=== PATIENT | male | born 1940 | race Caucasian/White ===

== ENCOUNTER → 2017-07-29 11:50 | Outpatient (CLI) | payer OTHER, SELFPAY ==
[2017-07-29 12:55] LABS: Add Manual Diff / Slide Review NO; Basophils Percent Auto 0.6 % (0-2); Eosinophils Percent Auto 3.7 % (2-4); Hematocrit 42.1 % (41-53); Hemoglobin 14.2 g/dL (13.5-17.5); Lymphocytes Percent Auto 19.5 % (25-40); Mean Corpuscular HGB Conc 33.8 % (30-36); Mean Corpuscular Hemoglobin 30.7 PG (26-34); Mean Corpuscular Volume 90.8 fL (80-100); Monocytes Percent Auto 8.6 % (3-14); Neutrophils Absolute Auto 4700 /uL (3000-5900); Neutrophils Percent Auto 67.6 % (50-75); Platelet Count 177 X10^3/uL (150-400); Red Blood Cell Count 4.63 X10^6/uL (4.5-5.9); Red Cell Distribution Width 13.4 % (11.6-14.8)
[2017-07-29 13:27] LABS: HEMOLYSIS < 15 (0-50); Potassium 4.8 mmol/L (3.4-5.1); Sodium 143 mmol/L (137-145)
== END ==
PROVIDERS: PCP Family Medicine; Visit Provider Orthopaedic Surgery
DX: M16.12 Unilateral primary osteoarthritis, left hip (principal); Z01.818 Encounter for other preprocedural examination; Z01.812 Encounter for preprocedural laboratory examination
CPT/HCPCS: 36415; 80051; 85025; 93005

== ENCOUNTER 2017-08-08 09:55 | Inpatient (IN) | payer OTHER, SELFPAY ==
[2017-08-04 12:45] VITALS: BMI 29.7
[2017-08-08] VITALS (12 sets, daily range): BP systolic 114–169; BP diastolic 48–91; PULSE 52–88; RESP 12–20; TEMP 35.7–36.6; O2SAT 93–97; BMI 28.2
--- NOTE | 2017-08-08 | DI.RAD.S_ITS ---
PROCEDURE: XR HIP LT 1V INDICATIONS: 77 year-old male with left hip joint replacement. TECHNIQUE: Single view of the lower pelvis acquired. COMPARISON: [facility] LYNDSEY Galindo, XR PELVIS WITH LATERAL HIP LEFT, 04/26/2017, 14:58. FINDINGS: Bones: Patient is status post noncemented left hip arthroplasty, with hardware components in expected positions. The hip joint appears congruent. Remote right hip arthroplasty is again noted. The visualized bony structures appear intact. Soft tissues: Overlying postoperative changes are noted, including skin elsie. No suspicious soft tissue densities. Patient is status post remote left pelvic embolization procedure. IMPRESSION: Status post left hip arthroplasty, with hardware components in expected positions. Dictated by: Victor M Olvera M.D. on 08/08/2017 at 17:05 Approved by: Victor M Olvera M.D. on 08/08/2017 at 17:06
[2017-08-08] MEDS: LACTATED RINGERS 1,000 ML 42 ML IV (13:23)
--- NOTE | 2017-08-08 14:34 | PM.PREOP ---
Pre-operative Note Interval Note Pre-op Check: History & Physical Reviewed by Physician and Changes
[2017-08-08] MEDS: CEFAZOLIN 1 GM/50 ML FROZ.PIGGY IV (15:06)
--- NOTE | 2017-08-08 15:42 | SUR.OPER ---
Lateral on padded OR bed. Gel axillary roll. Arms secured on padded armboard with pillow supporting top arm. Padded hip positioner braces x4 - anterior and posterior chest and pelvis. Additional gel pad used anterior pelvis. Gel pad under bottom leg from knee to foot and secured with tape over sheet.
[2017-08-08] MEDS: BUPIVACAINE 0.25% W/ EPI 50 ML VIAL 30 ML INJ (16:17)
[2017-08-08] MEDS: BUPIVACAINE LIPOSOME 266 MG/20 ML VIAL INJ (16:17)
--- NOTE | 2017-08-08 16:51 | PM.OP.1 ---
Operative Date/Time/Diagnoses - Date of procedure: 08/08/17 Time of procedure: 16:51 Pre-op diagnosis: Left hip degenerative joint disease Post-op diagnosis: same Procedure & Clinicians Procedure: Left total hip arthroplasty (CPT code 26704 with practice assistant) Same procedure as scheduled: Yes Indications: Patient is an 77-year-old male with severe left hip DJD. The patient has pain with activities and at rest, limited ambulation and activity tolerance, difficulties with ADLs, and failure of conservative treatment. We have discussed the nature of condition, treatment options, risks and benefits, and patient elects to proceed with total hip arthroplasty and gives informed consent. Surgeon: Harsh Henry Fishing Worker: Amira Casillas Anesthesia Type: General and Spinal Operative Notes Closure Type: primary Implants & Drains: Acetabulum: Khan [employer]hew R3 acetabular component size 56 mm Femoral component: Khan [employer]hew Synergy stem size 16 with high offset Femoral head: 36 mm + 0 cobalt chrome Estimated Blood Loss (mL): 100 Blood products transfused: none Procedure in detail: After satisfaction induction of anesthetic, and administration of IV antibiotics, the patient was positioned in the lateral decubitus position with all bony prominences well padded and pelvic position secured using a hip clinical research monitor positioning device. Left hip and lower extremity prepped and draped in the usual sterile fashion, 1st dose of intravenous tranexamic acid was administered, then a longitudinal incision was created centered over the greater trochanter and carried sharply through the skin and subcutaneous tissues down to the fascia elisha which was divided longitudinally and retracted with a Charnley retractor. External rotators visualize, cut, tagged, and retracted posteriorly, then the capsule was cut in a T-type fashion with the corners tagged and retracted. Hip was dislocated and femoral neck cut made according to preoperative templating. Acetabular retractors then placed, and the acetabular labrum and osteophytes were excised. The acetabulum was then sequentially reamed to 55 mm with an excellent circumferential ream and fit with the trial. The trial component was removed and a permanent size 56 Khan [employer] Nephew R3 acetabular component was selected, positioned, and impacted with satisfactory position and fixation achieved. Permanent liner was then inserted with the elevated lip directed posteriorly. Soft tissue then removed off the lateral femoral neck in the lateral neck was entered using a box osteotome. T-handled reamers placed down the canal followed by sequential broaching to 16 with the final broach left in place for trial reduction which demonstrated good leg length, range of motion, and stability characteristics with a 36 mm +0 trial ball. Because we had moderately medialized the acetabular component and rotational stability was good but not excellent another trial reduction was performed with a high offset neck trial, and this yielded excellent leg length, range of motion, and stability characteristics. The trial and broach were removed, and a permanent size 16 high offset Khan [employer] Nephew Synergy stem was selected and inserted with excellent position and fixation achieved. Another trial reduction yielded the above characteristics so the trial ball was exchanged for a permanent 36 mm +0 cobalt chromium ball. The hip was irrigated and reduced and excellent leg length range of motion and stability characteristics were achieved and maintained. Periarticular tissues were infiltrated with Exparel. The hip was copiously irrigated, and the capsule repaired with #2 Ethibond, and the piriformis was repaired back to the greater trochanter with the same. Fascia elisha closed with interrupted #1 Ethibond sutures, and the subcutaneous tissues were closed in 2 layers of 0 Vicryl and 2 0 Vicryl. Skin was closed with elsie and sterile dressings applied. Second dose of tranexamic acid was administered intravenously, and the anesthetic was terminated. Complications: none Condition: stable Disposition: PACU Plan for aftercare: Patient will be admitted to the acute care stoner, and anticipate discharge on postop day 1-2 with follow-up in office in 10-14 days. Outpatient physical therapy will be arranged and patient will continue to observe posterior hip precautions. Patient will continue use of postoperative Lovenox for 10 days postop.
--- NOTE | 2017-08-08 16:56 | P.OP_ITS ---
Operative Date/Time/Diagnoses - Date of procedure: 08/08/17 Time of procedure: 16:51 Pre-op diagnosis: Left hip degenerative joint disease Post-op diagnosis: same Procedure & Clinicians Procedure: Left total hip arthroplasty (CPT code 89627 with broker assistant) Same procedure as scheduled: Yes Indications: Patient is an 77-year-old male with severe left hip DJD. The patient has pain with activities and at rest, limited ambulation and activity tolerance, difficulties with ADLs, and failure of conservative treatment. We have discussed the nature of condition, treatment options, risks and benefits, and patient elects to proceed with total hip arthroplasty and gives informed consent. Surgeon: Harsh Henry [employer] Specialist: Amira Casillas Anesthesia Type: General and Spinal Operative Notes Closure Type: primary Implants & Drains: Acetabulum: Khan [employer]hew R3 acetabular component size 56 mm Femoral component: Khan [employer]hew Synergy stem size 16 with high offset Femoral head: 36 mm + 0 cobalt chrome Estimated Blood Loss (mL): 100 Blood products transfused: none Procedure in detail: After satisfaction induction of anesthetic, and administration of IV antibiotics, the patient was positioned in the lateral decubitus position with all bony prominences well padded and pelvic position secured using a hip balance wheel screw hole tapper positioning device. Left hip and lower extremity prepped and draped in the usual sterile fashion, 1st dose of intravenous tranexamic acid was administered, then a longitudinal incision was created centered over the greater trochanter and carried sharply through the skin and subcutaneous tissues down to the fascia elisha which was divided longitudinally and retracted with a Charnley retractor. External rotators visualize, cut, tagged, and retracted posteriorly, then the capsule was cut in a T-type fashion with the corners tagged and retracted. Hip was dislocated and femoral neck cut made according to preoperative templating. Acetabular retractors then placed, and the acetabular labrum and osteophytes were excised. The acetabulum was then sequentially reamed to 55 mm with an excellent circumferential ream and fit with the trial. The trial component was removed and a permanent size 56 Khan [employer] Nephew R3 acetabular component was selected, positioned, and impacted with satisfactory position and fixation achieved. Permanent liner was then inserted with the elevated lip directed posteriorly. Soft tissue then removed off the lateral femoral neck in the lateral neck was entered using a box osteotome. T- handled reamers placed down the canal followed by sequential broaching to 16 with the final broach left in place for trial reduction which demonstrated good leg length, range of motion, and stability characteristics with a 36 mm +0 trial ball. Because we had moderately medialized the acetabular component and rotational stability was good but not excellent another trial reduction was performed with a high offset neck trial, and this yielded excellent leg length, range of motion, and stability characteristics. The trial and broach were removed, and a permanent size 16 high offset Khan [employer] Nephew Synergy stem was selected and inserted with excellent position and fixation achieved. Another trial reduction yielded the above characteristics so the trial ball was exchanged for a permanent 36 mm +0 cobalt chromium ball. The hip was irrigated and reduced and excellent leg length range of motion and stability characteristics were achieved and maintained. Periarticular tissues were infiltrated with Exparel. The hip was copiously irrigated, and the capsule repaired with #2 Ethibond, and the piriformis was repaired back to the greater trochanter with the same. Fascia elisha closed with interrupted #1 Ethibond sutures, and the subcutaneous tissues were closed in 2 layers of 0 Vicryl and 2 0 Vicryl. Skin was closed with elsie and sterile dressings applied. Second dose of tranexamic acid was administered intravenously, and the anesthetic was terminated. Complications: none Condition: stable Disposition: PACU Plan for aftercare: Patient will be admitted to the acute care stoner, and anticipate discharge on postop day 1-2 with follow-up in office in 10-14 days. Outpatient physical therapy will be arranged and patient will continue to observe posterior hip precautions. Patient will continue use of postoperative Lovenox for 10 days postop.
[2017-08-08] MEDS: ONDANSETRON 4 MG/2 ML INJ IV (17:23)
--- NOTE | 2017-08-08 17:37 | PC.NURSE ---
Addendum entered by Janeth Seaman R.N. 08/08/17 21:43: Medicated for nausea vomiting with Reglan x 1, with adequate relief, taking sips of water. IVF infusing. Continue on 2L O2 via NC. Calls staff appropriately for needs. Original Note: Admit note: Patient admitted to AC from Holding with 2 RNs, awake and alert x 3. No c/o pain, reports mild numbness to Left foot/ left foot warm, pink, movable, 2+ pulses. Bilateral calf SCDs in place, Dressing to lateral left upper hip/thigh CDI with ice pack in place. C/O nausea, medicated with Zofran IV as ordered with adequate relief. VSS. Pleasant, calm, and cooperative. Bed alarm active, call light within reach, educated regarding room, environment and hip/fall precautions.
--- NOTE | 2017-08-08 17:50 | SUR.PHASEI ---
stable pacu report called, pt left in stable condiiton.
[2017-08-08] MEDS: LACTATED RINGERS 1,000 ML 100 ML IV (18:46)
[2017-08-08] MEDS: METOCLOPRAMIDE 10 MG/2 ML INJ IV (20:37)
[2017-08-08] MEDS: CEFAZOLIN 2 GM/100 ML FROZ.PIGGY IV (22:36)
[2017-08-09] VITALS (9 sets, daily range): BP systolic 135–146; BP diastolic 58–78; PULSE 60–75; RESP 16–19; TEMP 36.4–37.3; O2SAT 91–98
[2017-08-09] MEDS: ONDANSETRON 4 MG/2 ML INJ IV (02:56)
--- NOTE | 2017-08-09 03:26 | PC.NURSE ---
Addendum entered by Ana Maria Redd R.N. 08/09/17 06:36: Pt voided 225. radha urine. Pt stated it took me 30 minutes to get that out. post void, bladder scan showed 222mL. Pt stated he did not feel full, nor bloated, nor like he had to go. will continue to monitor. Pt did complain of some itchiness, lotion applied. snack provided, gingerale provided. Pt denied nausea/vomiting. tylenol given. stated it was helping. Original Note: Assumed care of pt from outgoing shift at 2300 6-4. Pt asleep, easily aroused. no void yet, will encourage to void. complaint with nursing assessments. PT uses call light. has continuous pox on. 2l oxygen per nc. discussed IS and pt stated he was tired so would use it in the AM. denies pain. pt states he is comfortable.Pt belongings and call light within reach. bed in lowest, locked position. bed alarm on for pt safety. will continue to monitor pt for safety. 0200 update- pt voided 135. will encourage again in a bit. bladder scan 370ml. back washed and lotion applied with backrub. Pt back to bed. pt tolerated movement OK, pt stated he felt nauseous after movement, given zofran per MAR. will continue to monitor.
[2017-08-09] MEDS: LACTATED RINGERS 1,000 ML 100 ML IV (04:45)
[2017-08-09 05:31] LABS: Hematocrit 38.3 % (41-53); Hemoglobin 12.9 g/dL (13.5-17.5)
[2017-08-09] MEDS: CEFAZOLIN 2 GM/100 ML FROZ.PIGGY IV (06:07)
[2017-08-09] MEDS: ACETAMINOPHEN 325 MG TABLET 650 MG PO (06:07)
[2017-08-09] MEDS: ENOXAPARIN 40 MG/0.4 ML SYRINGE SUBCUT (09:02)
[2017-08-09] MEDS: NAPROXEN 250 MG TABLET PO (09:03)
[2017-08-09] MEDS: DOCUSATE 100 MG CAPSULE PO ×2 (09:03→20:48)
[2017-08-09] MEDS: GABAPENTIN 300 MG CAPSULE PO ×2 (09:03→20:48)
--- NOTE | 2017-08-09 09:41 | RT ---
Pt refuses any RT TX's at this time. He states he only uses his Symbicort at bed time for wheezing and his Alb. only as a rescue inhaler for SOB. Sats are 96% on R/A. Pt states he is going home today and most likely not use the inhalers at all. Nursewas given this information as well. Pt is using his I.S and achieved volumes are apx. 1000. BC/RT
[2017-08-09] MEDS: OXYCODONE/ACETAMINOPHEN 5/325 TABLET 1 TAB PO ×3 (11:00→20:48)
--- NOTE | 2017-08-09 12:41 | PT.IIE ---
Current Diagnoses Unilateral primary osteoarthritis, left hip (08/08/17) Surgery Performed Operation Date: 08/08/17 13:45 Actual Procedures p Total Hip Arthroplasty(Left) - Harsh Henry MD Surgical History (Last Updated 08/04/17 @ 13:20 by Perri Barrett RN) H/O abdominal surgery (Acute) History of cholecystectomy (Acute) History of total right hip arthroplasty (Acute) History of vasectomy (Acute) Hx of tonsillectomy (Acute) Medical History (Last Updated 08/04/17 @ 13:20 by Perri Barrett RN) Acid reflux (Acute) COPD (chronic obstructive pulmonary disease) (Acute) Depression (Acute) Enlarged prostate (Acute) Hernia (Acute) Insomnia (Acute) Kidney stones (Acute) Pancreatitis (Acute) Pelvic fracture (Acute) Pneumonia (Acute) TMJ (temporomandibular joint syndrome) (Acute) Ulcer (Acute) Urinary frequency (Acute) Urinary urgency (Acute) Physical Therapy Inpatient Evaluation/Re-Eval M1 PT/OT-IP Prior Functional Status Start: 08/09/17 12:29 Freq: NEEDED Status: Active Protocol: Document 08/09/17 12:29 AB (Rec: 08/09/17 12:41 AB [id number]) Medical Review Prior Functional Status Medical History Reviewed Yes Mobility and Gait pt stated that he is independent with all mobilities and ambulation without AD Social History Household Members spouse Living Arrangements House Number of Floors (Floors) One Floor Number of Stairs To Enter/Railing? 1 step to enter Home Environment High Toilet Walk in Shower Home Equipment Front Wheel Walker Grab Bars In Shower Employment Status Retired Additional Social History Comment pt stated that he can put a shower stool in the walk in shower but at this time he does not have it in there M2 PT-IP Current Condition Start: 08/09/17 12:29 Freq: NEEDED Status: Active Protocol: Document 08/09/17 12:29 AB (Rec: 08/09/17 12:41 AB [id number]) Physical Therapy Current Condition Current Condition Evaluation Date 08/09/17 Treatment Diagnosis s/p L MARÍA Onset Date 08/08/17 Precautions Posterior Hip Precautions No Hip Flexion > 90 degrees No Hip Internal Rotation No Hip Adduction Weight Bearing Status Weight Bearing Status Weight Bear as Tolerated M3 PT-IP Subjective Start: 08/09/17 12:29 Freq: NEEDED Status: Active Protocol: Document 08/09/17 12:29 AB (Rec: 08/09/17 12:41 AB [id number]) Subjective Physical Therapy Visit Type Type Initial Evaluation Visit Start Time 11:01 Visit Stop Time 11:46 Total Visit Minutes 45 Number of ENROLLMENT COUNSELOR Visits 0 Physical Therapy Visit Comments Patient Comments pt stated that he got up with nurses this morning and his leg feels rubbery that he has to sit back down Therapy Pain Assessment Pain When Pain Assessed At Rest Pain Present Pain Present Pain Reported Location Left Hip Intensity 3 Scale Used Numeric (1 - 10) Pain Management Techniques Apply Cold Re-positioning Timing of Activity with Medications M4 PT-IP Mobility and Gait Start: 08/09/17 12:29 Freq: NEEDED Status: Active Protocol: Document 08/09/17 12:29 AB (Rec: 08/09/17 12:41 AB [id number]) PT-Bed Mobility Assessment Supine to Sit Supine to Sit Contact Guard Assistance Sit to Supine Sit to Supine Moderate Assistance PT-Transfer Assessment Sit to and From Stand Sit to and from Stand Moderate Assistance Equipment Transfer Assistive Device Gait Belt Front Wheeled Walker Orthotic/Prosthetic Devices or Brace: No Comments Mobility Comments L hip tends to adduct and internally rotate during sit to stand and required mod to max A to stabilize and max cues provided. pt required cues for quad activation with (+) L knee buckling. Gait Assessment Gait Gait Assistance Required: Moderate Assistance Maximum Assistance Distance (Feet) (feet) 30 Able to Maintain Weight Bearing Status Yes During Gait Assistive Devices Assistive Device Gait Belt Front Wheeled Walker Orthotic/Prosthetic Devices or Brace: No Gait Deviations General Gait Pattern Antalgic Factors Limiting Gait Function Factors Limiting Gait Function Decreased Activity Tolerance Decreased Strength Pain Poor Balance Poor Safety Awareness Comments Gait Comments pt with (+) L knee buckling requiring max A for recovery and L knee stabilization and max cues to steady self. Stair Climbing Assessment Evaluation Level of Assist On Stairs Maximal Assistance 1 Person Assistance Devices Stair Climbing Assistive Devices Front Wheel Walker Technique/Endurance Stair Climbing Direction Ascend and Descend Stair Climbing Technique Step to Step Number of Steps Climbed 1 Query Text: Comments Stair Climbing Comments (+) L knee buckling requiring max A and max cues PT-Balance Assessment Sitting Balance and Reactions Static Sitting Balance Ability Good Dynamic Sitting Balance Ability Good Standing Balance and Reactions Static Standing Balance Ability Fair Dynamic Standing Balance Ability Poor M5 PT-IP Objective Assessments Start: 08/09/17 12:29 Freq: NEEDED Status: Active Protocol: Document 08/09/17 12:29 AB (Rec: 08/09/17 12:41 AB [id number]) Orientation Orientation/Cognition Level of Alertness Alert Orientation Name Place Situation Safety Awareness Decreased Safety Awareness Strength Lower Extremity Strength Assessment Bilaterally Impaired Comments Strength Comments R hip flexion/extension: 3-/5 R knee extension: 3+/5 L knee extension: 3-/5 M6 PT-IP Treatment Start: 08/09/17 12:29 Freq: NEEDED Status: Active Protocol: Document 08/09/17 12:29 AB (Rec: 08/09/17 12:41 AB [id number]) Physical Therapy Treatment Exercises Exercises Short Arc Quads Education Education Provided Precautions Weight Bearing Status Post-Op Packet Safety M7 PT-IP Assessment and Plan Start: 08/09/17 12:29 Freq: NEEDED Status: Active Protocol: Document 08/09/17 12:29 AB (Rec: 08/09/17 12:41 AB [id number]) PT Summary Assessment and Plan Potential Rehabilitation Potential Fair Status of Condition at Evaluation Evolving Summary Impairments Pain Strength Balance Cognition Bed Mobility Transfers Gait Activity Tolerance Assessment Summary pt requiring max A with mobility at this time with (+) L knee buckling requiring max A for recovery/steadiness. d /c plan depending on progress and ability of spouse to assist pt. Goals Bed Mobility Goal Standby Assistance Transfer Goal Standby Assistance Gait Goal Standby Assistance Gait Distance 150 Days to Meet Goals 3 Frequency of Treatment Frequency Of Treatment Twice a Day Treatment Plan Physical Therapy Treatment Plan Bed Mobility Training Transfer Training Gait Training Therapeutic Exercise Balance Retraining Post Op Education Discharge Planning Hot or Cold Pack Neuromuscular Re-ed Coordination Retraining Manual Therapy Other Recommendations and Next Treatment ambulation, strengthening Focus Recommendations To Nursing Amount of Assist Needed 2 Person Assist Discharge Recommendations PT Discharge Recommendations Home with 24/7 Assist Home Health SNF Rehab LTAC Other Discharge Recommendations SNF vs home with 24/7 assist with home health PT or outpt PT Provider Visit Care Team Role Provider Type Suman Garcia MD Primary Care Provider Physician Specialty: Family Practice Harsh Henry MD Admit Provider Physician Attending Provider Specialty: Orthopedic Surgery
--- NOTE | 2017-08-09 13:53 | P.PN_ITS ---
Subjective Date Patient Seen: 08/09/17 Time Patient Seen: 07:50 Interval history: POD #1 status post total hip arthroplasty with Dr. Henry. His pain is adequately controlled with Tylenol. He has not been up with physical therapy. He is urinating on his own. Has had complaints of nausea. Exam Vital Signs (past 8 hours): Vital Signs - 8 hr 3 08/09/17 07:50 08/09/17 08:50 08/09/17 13:01 Temperature 99.2 F 98.1 F Pulse Rate 66 65 60 Respiratory Rate 16 18 16 Blood Pressure 136/58 H 146/58 H Pulse Oximetry 96 96 98 Pulse Oximetry 98 Oxygen Delivery Method Room Air Oxygen Flow Rate 1 Narrative Exam Narrative: Patient lying in bed in no acute distress. He is alert and oriented x3. Dressing on hip is CDI. Calves are soft, compressible, nontender bilaterally. He is able to actively dorsiflex and plantar flex. Pulses are symmetrical. Objective Labs Result Diagrams: 08/09/17 04:54 Labs: Laboratory Results - last 24 hr 08/09/17 04:54 Hgb 12.9 L Hct 38.3 L Assessment & Plan Post-op (1) S/P total hip arthroplasty: Current Visit: Yes Status: Acute (2) Obstructive chronic bronchitis with exacerbation: Onset Date: 02/04/15 Current Visit: No Status: None Postoperative Procedures Operation Date: 08/08/17 13:45 Actual Procedures Side Surgeon p Total Hip Arthroplasty Left Harsh Henry MD POD #1 status post total hip arthroplasty with Dr. Henry. Has had complaints of nausea throughout the morning. He will likely need nausea medication for home. His pain is adequately controlled with Tylenol. He will get up and ambulate with physical therapy today. DC home once mobilizing safely, and pain adequately controlled. Time Spent With Patient less than 15 minutes Quality VTE Deep Vein Thrombosis/Pulmonary Embolism Present on Admission: No
--- NOTE | 2017-08-09 16:26 | CM.DANOTE ---
DCP: assessment: EMR reviewed, spoke with PT Jenn and met with pt and his Deangelo. Introduced self and role. Pt is a 77 year old male who admitted yesterday for a planned L MARÍA. Surgeon: Dr. Henry Payer: Aaron Puri PCP: Dr. Garcia DCP template completed with info currently available. P: at this point pt and his remain hopeful that he can go right home at d/c. PT indicates pt had a difficult time today. OT is ordered. Notes not available at this time. Devin plans to be in earlier tomorrow so that she can be part of caregiver training (limited by sylvester schedule. Discussed briefly the issues re short snf rehab as per the insurance guidelines. Network: 100 coverage first 20 days Out of network ([facility]) 50 % coverage. Unconfirmed information indicates that [facility] in [place] is network. Unknown other snfs in the [facility].. Will not look further into this until need is clearer.
--- NOTE | 2017-08-09 16:49 | PT.IPTN ---
Current Diagnoses Chronic obstructive pulmonary disease with (acute) exacerbation (08/08/17) Unilateral primary osteoarthritis, left hip (08/08/17) Presence of unspecified artificial hip joint (08/08/17) Surgery Performed Operation Date: 08/08/17 13:45 Actual Procedures p Total Hip Arthroplasty(Left) - Harsh Henry MD Physical Therapy Treatment Note M2 PT-IP Current Condition Start: 08/09/17 12:29 Freq: NEEDED Status: Active Protocol: Document 08/09/17 12:29 AB (Rec: 08/09/17 12:41 AB [id number]) Physical Therapy Current Condition Current Condition Evaluation Date 08/09/17 Treatment Diagnosis s/p L MARÍA Onset Date 08/08/17 Precautions Posterior Hip Precautions No Hip Flexion > 90 degrees No Hip Internal Rotation No Hip Adduction Weight Bearing Status Weight Bearing Status Weight Bear as Tolerated M3 PT-IP Subjective Start: 08/09/17 12:29 Freq: NEEDED Status: Active Protocol: Document 08/09/17 16:42 AB (Rec: 08/09/17 16:49 AB [id number]) Subjective Physical Therapy Visit Type Type Treatment Note Visit Start Time 14:30 Visit Stop Time 14:55 Total Visit Minutes 25 Number of PHARMACY DATA ANALYST Visits 0 Physical Therapy Visit Comments Patient Comments Pt agreeable to do therapy Therapy Pain Assessment Pain Present Pain Present Denied Pain M4 PT-IP Mobility and Gait Start: 08/09/17 12:29 Freq: NEEDED Status: Active Protocol: Document 08/09/17 16:42 AB (Rec: 08/09/17 16:49 AB [id number]) PT-Bed Mobility Assessment Supine to Sit Supine to Sit Minimal Assistance Sit to Supine Sit to Supine Minimal Assistance PT-Transfer Assessment Sit to and From Stand Sit to and from Stand Minimal Assistance Equipment Transfer Assistive Device Gait Belt Front Wheeled Walker Gait Assessment Gait Gait Assistance Required: Moderate Assistance Distance (Feet) (feet) 30 Assistive Devices Assistive Device Gait Belt Front Wheeled Walker Orthotic/Prosthetic Devices or Brace: No Gait Deviations General Gait Pattern Antalgic Decreased Stride Length Decreased Feet Clearance Factors Limiting Gait Function Factors Limiting Gait Function Decreased Activity Tolerance Decreased Strength Poor Balance Poor Safety Awareness Comments Gait Comments L knee continues to buckle but to a lesser degree with afternoon but continues to require assist to stabilize L knee. M5 PT-IP Objective Assessments Start: 06/05/18 12:29 Freq: NEEDED Status: Active Protocol: Document 08/09/17 12:29 AB (Rec: 08/09/17 12:41 AB [id number]) Orientation Orientation/Cognition Level of Alertness Alert Orientation Name Place Situation Safety Awareness Decreased Safety Awareness Strength Lower Extremity Strength Assessment Bilaterally Impaired Comments Strength Comments R hip flexion/extension: 3-/5 R knee extension: 3+/5 L knee extension: 3-/5 M6 PT-IP Treatment Start: 08/09/17 12:29 Freq: NEEDED Status: Active Protocol: Document 08/09/17 16:42 AB (Rec: 08/09/17 16:49 AB [id number]) Physical Therapy Treatment Exercises Exercises Ankle Pumps Quad Sets Education Education Provided Precautions Weight Bearing Status Post-Op Packet Safety Other Treatments Other Treatment Performed sit<>stand x 4 reps with cues needed with initial reps and min A but able to complete without cues after 2 reps and CGA M7 PT-IP Assessment and Plan Start: 08/09/17 12:29 Freq: NEEDED Status: Active Protocol: Document 08/09/17 16:42 AB (Rec: 08/09/17 16:49 AB [id number]) PT Summary Assessment and Plan Potential Rehabilitation Potential Fair Summary Impairments Pain ROM Strength Balance Coordination Sensation Tone Cognition Bed Mobility Transfers Gait Activity Tolerance Progress Towards Goals Slow Progress due to Activity Tolerance Slow Progress - Other Assessment Summary Pt continues to have L knee buckling with ambulation . set up caregiver training with spouse tomorrow at ~3 pm and will determine if spouse will be able to assist pt safely. If spouse is able to provide necessary assistance and pt able to do up/down one step, pt may go home but at this time may require SNF rehab. Goals Bed Mobility Goal Standby Assistance Transfer Goal Standby Assistance Gait Goal Standby Assistance Gait Distance 150 Days to Meet Goals 3 Frequency of Treatment Frequency Of Treatment Twice a Day Treatment Plan Physical Therapy Treatment Plan Bed Mobility Training Transfer Training Gait Training Therapeutic Exercise Balance Retraining Post Op Education Discharge Planning Hot or Cold Pack Neuromuscular Re-ed Coordination Retraining Manual Therapy Other Recommendations and Next Treatment ambulation, strengthening Focus Recommendations To Nursing Amount of Assist Needed 2 Person Assist Discharge Recommendations PT Discharge Recommendations Home with 24/7 Assist Home Health SNF Rehab Outpatient PT Other Discharge Recommendations SNF vs home with 24/7 assist with home health PT or outpt PT
--- NOTE | 2017-08-09 16:51 | OT.IP.EVAL ---
Current Diagnoses Chronic obstructive pulmonary disease with (acute) exacerbation (08/08/17) Unilateral primary osteoarthritis, left hip (08/08/17) Presence of unspecified artificial hip joint (08/08/17) Surgery Performed Operation Date: 08/08/17 13:45 Actual Procedures p Total Hip Arthroplasty(Left) - Harsh Henry MD Past Medical History (Last Updated 08/04/17 @ 13:20 by Perri Barrett, RN) Acid reflux (Acute) COPD (chronic obstructive pulmonary disease) (Acute) Depression (Acute) Enlarged prostate (Acute) Hernia (Acute) Insomnia (Acute) Kidney stones (Acute) Pancreatitis (Acute) Pelvic fracture (Acute) Pneumonia (Acute) TMJ (temporomandibular joint syndrome) (Acute) Ulcer (Acute) Urinary frequency (Acute) Urinary urgency (Acute) Surgical History (Last Updated 08/04/17 @ 13:20 by Perri Barrett RN) H/O abdominal surgery (Acute) History of cholecystectomy (Acute) History of total right hip arthroplasty (Acute) History of vasectomy (Acute) Hx of tonsillectomy (Acute) Occupational Therapy Inpatient Evaluation/Re-Eval M1 PT/OT-IP Prior Functional Status Start: 08/09/17 16:37 Freq: NEEDED Status: Active Protocol: Document 08/09/17 12:19 PJMiryam (Rec: 08/09/17 16:51 PJM [id number]) Medical Review Prior Functional Status Medical History Reviewed Yes Diet/Fluid Consistency Regular Communication WNL Mobility and Gait pt stated that he is independent with all mobilities and ambulation without AD Activities of Daily Living and IADL's Pt states he was independent with all self care, drives. 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 Social History Household Members spouse Living Arrangements House Number of Floors (Floors) One Floor Number of Stairs To Enter/Railing? 1, 1 rail Home Environment High Toilet Walk in Shower Home Equipment Long Handled Shoe Horn Employment Status Retired Additional Social History Comment Pt lives on [facility]. M2 OT-IP Current Condition Start: 08/09/17 16:37 Freq: Status: Active Protocol: Document 08/09/17 12:19 PJM (Rec: 08/09/17 16:51 TANYAM [id number]) Occupational Therapy Current Condition Current Condition Evaluation Date 08/09/17 Treatment Diagnosis decreased self care and functional mobility Post Operative Precautions Posterior Hip Precautions No Hip Flexion > 90 degrees No Hip Internal Rotation No Hip Adduction Weight Bearing Status Weight Bearing Status Weight Bear as Tolerated M3 OT- IP Subjective and Pain Start: 08/09/17 16:37 Freq: Status: Active Protocol: Document 08/09/17 12:19 PJM (Rec: 08/09/17 16:51 PJ [id number]) OT- Subjective Occupational Therapy Visit Type Type Initial Evaluation Visit Start Time 11:45 Visit Stop Time 12:19 Total Visit Minutes 34 Occupational Therapy Visit Comments Patient Comments I want to go home tomorrow. My is working on the [employer]. Patient/Caregiver Goals to be able to walk without pain OT Pain Assessment Pain When Pain Assessed At Rest Pain Present Pain Present Pain Reported Location Left Hip Intensity 1 Scale Used Numeric (1 - 10) Description Aching Management Techniques Timing of Activity with Medications M4 OT- IP ADL's Start: 08/09/17 16:37 Freq: Status: Active Protocol: Document 08/09/17 12:19 PJM (Rec: 08/09/17 16:51 PJ [id number]) OT [id number] General Evaluation Self-Feeding Ability Independent OT ADL-Grooming General Evaluation Grooming Ability Standby Assistance Comments OT Grooming Comments after set up in chair OT ADL-Oral Care General Eval Oral Care Ability Standby Assistance Comments Oral Care Comments after set up in chair OT ADL-Dressing General Eval Upper Body Dressing Ability Independent Lower Body Dressing Ability Maximum Assistance Assistive Devices Dressing Assistive Devices Long Handled Shoe Horn Director Broadcast Sock Aid Comments OT Dressing Comments Began education re: use of pooling operator, sock aid and long shoe horn for LB dressing within posterior hip precautions. Pt's to try to obtain pooling operator and sock aid from [facility]. He has long shoe horn. OT ADL-Toileting Comments OT Toileting Comments pt declined any need this session; to be assessed OT ADL-Bathing Bathing Type Bathing Type Shower Comments OT Bathing Comments did not occur; can assist PRN at home per pt. M5 OT- IP IADL's Start: 08/09/17 16:37 Freq: Status: Active Protocol: Document 08/09/17 12:19 PJM (Rec: 08/09/17 16:51 [facility] [id number]) OT-Instrumental Activities of Daily Living Deficits IADL Deficits Identified Deficits Home Safety Awareness Awareness of Need for Assistance at Home Good Awareness Ability to Problem Solve Emergency Able to Problem Solve Situations Medication Management Medication Management Caregiver Provides Supervision Money Management Money Management No Deficits Identified Meal Preparation Meal Preparation Caregiver Provides Assist Gas Meter Installer Gas Meter Installer Caregiver Provides Assist Driving Driving Caregiver Provides Assist Driving Comments to assist with driving until pt able M6 OT- IP Functional Cognition Start: 08/09/17 16:37 Freq: Status: Active Protocol: Document 08/09/17 12:19 PJM (Rec: 08/09/17 16:51 [facility] [id number]) Cognitive Factors Limiting Selfcare Function Cognitive Ability Level of Alertness Alert Patient Orientation Name Age Birthday Month Date Year Day of Week Place Situation Attention Span Ability Capable of Focused Attention Capable of Sustained Attention Ability to Follow Commands Able to Follow One Step Commands Cognitive Comments Cognitive Assessment Comments Pt recalls posterior hip precautions; needs to practice applying them during ADLS. OT- Vision and Hearing OT- Hearing Assessment OT- Hearing Assessment WFL OT- Vision Assessment Visual Acuity WFL M7 OT- IP Mobility and Balance Start: 08/09/17 16:37 Freq: Status: Active Protocol: Document 08/09/17 12:19 PJM (Rec: 08/09/17 16:51 [facility] NRTM) OT-Transfer Assessment Comments Mobility Comments Pt seen in recliner this session. P.T. reports pt's L leg buckling at end of their session and pt not safe to d/c home today. OT- Balance Assessment Sitting Balance and Reactions Static Sitting Balance Ability Normal M8 OT- IP Objective Assessments Start: 08/09/17 16:37 Freq: Status: Active Protocol: Document 08/09/17 12:19 PJM (Rec: 08/09/17 16:51 [facility] [id number]) OT Gross Range of Motion Upper Extremity Range of Motion Assessment Right Impaired ROM Impairments R shoulder scaption limited to ~45 degrees due to old injury . Pt is R dominant OT Strength Upper Extremity Strength Assessment Within Functional Limits OT- Coordination Assessment Comments Coordination Comments BUE WFL OT-Muscle Tone Assessment Muscle Tone WNL Yes OT Sensation Assessment Comments Summary Comments BUE sensation WFL M9 OT- IP Assessment and Plan Start: 08/09/17 16:37 Freq: Status: Active Protocol: Document 08/09/17 12:19 PJM (Rec: 08/09/17 16:51 SHERRIE [id number]) OT Summary Assessment and Plan Potential Rehabilitation Potential Good Summary OT Impairments Pain Strength Balance Functional Mobility Dressing Toileting Bathing Toilet Transfers Shower Transfers Assessment Summary Low complexity OT assessment completed. Pt currently has significant performance deficits in functional mobility as LLE buckling during P.T. session today. Pt also has performance deficits in standing grooming, lower body dressing, bathing, toileting. Began education re: lower body dressing with AED and bathroom safety equipment options. Pt will benefit from 1 additional OT session tomorrow to address goals below. Goals Grooming Goal Standby Assistance Dressing Goal Standby Assistance Long Handled Shoe Horn Director Broadcast Sock Aid Toileting Goal Independent Bathing Goal Minimal Assistance Toilet Transfer Goal Standby Assistance Shower Transfer Goal Standby Assistance Patient/Caregiver Education Goal Demonstrate Post-Op Precautions Caregiver Independent Assisting Patient Days to Meet Goals 2 Frequency of Treatment Frequency Of Treatment Once a Day Treatment Plan OT Treatment Plan ADL Training Functional Mobility Patient/Family Education Discharge Planning Other Treatment Recommendations and Next check on shower chair, pooling operator Treatment Focus ,sock aid, family ed Discharge Recommendations OT Discharge Recommendations Home with 27/09 Assist Home Equipment Needs pooling operator, sock aid, shower seat ?
--- NOTE | 2017-08-09 19:59 | RT ---
BREATH SOUNDS ARE MILDLY DECREASED IN BLL, OTHERWISE CLEAR. RR = 16. O2 SAT ON RA NOTED AT 94%. BRONCHODILATOR NOT NEEDED AT THIS TIME.
[2017-08-10] MEDS: OXYCODONE/ACETAMINOPHEN 5/325 TABLET 1 TAB PO ×3 (02:53→19:23)
[2017-08-10 05:29] VITALS: BP 144/65; PULSE 68; RESP 16; TEMP 36.9; O2SAT 95
[2017-08-10 08:04] VITALS: BP 146/73; PULSE 71; RESP 16; TEMP 36.8; O2SAT 91
[2017-08-10] MEDS: ENOXAPARIN 40 MG/0.4 ML SYRINGE SUBCUT (09:01)
[2017-08-10] MEDS: GABAPENTIN 300 MG CAPSULE PO ×2 (09:02→20:59)
[2017-08-10] MEDS: SODIUM CHLORIDE 0.9% FLUSH 10 ML IV ×2 (09:02→20:59)
[2017-08-10] MEDS: NAPROXEN 250 MG TABLET PO (09:02)
[2017-08-10] MEDS: DOCUSATE 100 MG CAPSULE PO ×2 (09:02→20:59)
--- NOTE | 2017-08-10 09:43 | P.PN_ITS ---
Subjective Date Patient Seen: 08/10/17 Time Patient Seen: 09:38 Interval history: POD #2 status post left total hip arthroplasty with Dr. Henry. Pain is well controlled. He has been slow to ambulate with his recovery and having knee buckling on non operative side. Patient is urinating well. Exam Vital Signs (past 8 hours): Vital Signs - 8 hr 3 08/10/17 05:29 08/10/17 08:04 Temperature 98.5 F 98.2 F Pulse Rate 68 71 Respiratory Rate 16 16 Blood Pressure 144/65 H 146/73 H Pulse Oximetry 95 91 Pulse Oximetry 91 Oxygen Delivery Method Room Air Oxygen Flow Rate 0 Narrative Exam Narrative: Patient sitting bedside chair in no acute distress. He is alert and oriented x3. Dressing on left hip is CDI. He is able to actively dorsiflex and plantar flex. Calves are soft, compressible, and nontender bilaterally. Sensation intact to light touch throughout bilateral lower extremities. Pulses are symmetrical. Objective Labs Result Diagrams: 08/09/17 04:54 Assessment & Plan Post-op (1) S/P total hip arthroplasty: Current Visit: Yes Status: Acute Postoperative Procedures Operation Date: 08/08/17 13:45 Actual Procedures Side Surgeon p Total Hip Arthroplasty Left Harsh Henry MD POD #2 status post left total hip arthroplasty with Dr. Henry. Patient is slow to recover after surgery. Having difficulty with ambulation. Pain is adequately controlled. DC Plan in next 1-2 days is possible SNF versus home health services for continued assistance with ambulation and pain control. Time Spent With Patient less than 15 minutes Quality VTE Deep Vein Thrombosis/Pulmonary Embolism Present on Admission: No
--- NOTE | 2017-08-10 10:22 | CM.DANOTE ---
DCP: continued: Spoke with OT/PT and ortho PA Vale this morning. All are recommending snf stay for pt before home. Vale has discussed same with pt and Deangelo and notes they are agreeable. Called [facility]: Lisa states not contacted with [employer]. Called [facility] PRINCE/Jacqui + contracted since Oct 2016. Met with pt and Deangelo. Discussed snf process, choice options and both very agreeable to [facility] PR[facility]. Deangelo notes she can provide lots of supportive assist at d/c but pt will need to manage basic functional mobility before he can be home and go to outpt PT clinic on [place]. She will notify the clinic to change the appts that have been set up. Both note they are pleased that [facility] [place] [facility] and that this will work just fine for Deangelo to visit frequently. Snf brochure provided. ARMANDO Collazo says d/c may be as early as tomorrow. Updated Jacqui and she will await the referral packet ([facility] is faxing this now). Will do PASRR in prep for pending d/c. P: [facility] PRINCE at d/c, pending update by Jacqui that [employer] auth is obtained. Jacqui is aware that w/c van transport will be needed.
[2017-08-10 12:07] VITALS: BP 146/69; PULSE 71; RESP 15; TEMP 37.5; O2SAT 92
--- NOTE | 2017-08-10 12:33 | PT.IPTN ---
Current Diagnoses Chronic obstructive pulmonary disease with (acute) exacerbation (08/08/17) Unilateral primary osteoarthritis, left hip (08/08/17) Presence of unspecified artificial hip joint (08/08/17) Surgery Performed Operation Date: 08/08/17 13:45 Actual Procedures p Total Hip Arthroplasty(Left) - Harsh Henry MD Physical Therapy Treatment Note M2 PT-IP Current Condition Start: 08/09/17 12:29 Freq: NEEDED Status: Active Protocol: Document 08/09/17 12:29 AB (Rec: 08/09/17 12:41 AB [id number]) Physical Therapy Current Condition Current Condition Evaluation Date 08/09/17 Treatment Diagnosis s/p L MARÍA Onset Date 08/08/17 Precautions Posterior Hip Precautions No Hip Flexion > 90 degrees No Hip Internal Rotation No Hip Adduction Weight Bearing Status Weight Bearing Status Weight Bear as Tolerated M3 PT-IP Subjective Start: 08/09/17 12:29 Freq: NEEDED Status: Active Protocol: Document 08/10/17 12:22 AB (Rec: 08/10/17 12:32 AB [id number]) Subjective Physical Therapy Visit Type Type Treatment Note Visit Start Time 09:10 Visit Stop Time 09:55 Total Visit Minutes 45 Number of GLOBAL MARKETING INTERN Visits 0 Physical Therapy Visit Comments Patient Comments pt agreeable to do therapy; spouse present for caregiver training Therapy Pain Assessment Pain When Pain Assessed At Rest Pain Present Pain Present Pain Reported Location Left Hip Intensity 3 Scale Used Numeric (1 - 10) Pain Management Techniques Timing of Activity with Medications M4 PT-IP Mobility and Gait Start: 08/09/17 12:29 Freq: NEEDED Status: Active Protocol: Document 08/10/17 12:22 AB (Rec: 08/10/17 12:32 AB [id number]) PT-Bed Mobility Assessment Supine to Sit Supine to Sit Moderate Assistance Sit to Supine Sit to Supine Minimal Assistance PT-Transfer Assessment Sit to and From Stand Sit to and from Stand Moderate Assistance Equipment Transfer Assistive Device Gait Belt Front Wheeled Walker Comments Mobility Comments caregiver training conducted and spouse required cues and requires further training. spouse stated that it too much for her to do. pt completed sit <>stand x 4 reps with cues needed to maintain hip precautions. Gait Assessment Gait Gait Assistance Required: Moderate Assistance Distance (Feet) (feet) 15 Able to Maintain Weight Bearing Status Yes During Gait Assistive Devices Assistive Device Gait Belt Front Wheeled Walker Gait Deviations General Gait Pattern Antalgic Decreased Stride Length Decreased Feet Clearance Step-to Gait Factors Limiting Gait Function Factors Limiting Gait Function Decreased Activity Tolerance Decreased Strength Pain Poor Balance Poor Safety Awareness Comments Gait Comments pt ambulated 15 ft x 2 reps. increase L knee unsteadiness with slight buckling towards end of ambulation requiring pt to sit back down. spouse assisted pt with ambulation but with PT assisting on other side of pt. spouse not comfortable with assisting pt. M5 PT-IP Objective Assessments Start: 08/09/17 12:29 Freq: NEEDED Status: Active Protocol: Document 08/09/17 12:29 AB (Rec: 08/09/17 12:41 AB [id number]) Orientation Orientation/Cognition Level of Alertness Alert Orientation Name Place Situation Safety Awareness Decreased Safety Awareness Strength Lower Extremity Strength Assessment Bilaterally Impaired Comments Strength Comments R hip flexion/extension: 3-/5 R knee extension: 3+/5 L knee extension: 3-/5 M6 PT-IP Treatment Start: 08/09/17 12:29 Freq: NEEDED Status: Active Protocol: Document 08/10/17 12:22 AB (Rec: 08/10/17 12:32 AB [id number]) Physical Therapy Treatment Education Education Provided Precautions Weight Bearing Status Post-Op Packet Safety Other Treatments Other Treatment Performed pt continues to require cues for hip precautions M7 PT-IP Assessment and Plan Start: 08/09/17 12:29 Freq: NEEDED Status: Active Protocol: Document 08/10/17 12:22 AB (Rec: 08/10/17 12:32 AB [id number]) PT Summary Assessment and Plan Potential Rehabilitation Potential Fair Summary Impairments Pain ROM Strength Balance Coordination Sensation Tone Cognition Bed Mobility Transfers Gait Activity Tolerance Progress Towards Goals Slow Progress due to Activity Tolerance Slow Progress - Other Assessment Summary pt continues to require mod to max A with mobility with slight L knee buckling. initiated caregiver training but spouse requires further training and spouse stated that she feels like it is too much for her to handle. informed them regarding SNF recommendation and agreeable. spouse stated that she feels like pt needs SNF placement at this time. manager management aware. Goals Bed Mobility Goal Standby Assistance Transfer Goal Standby Assistance Gait Goal Standby Assistance Gait Distance 150 Days to Meet Goals 3 Frequency of Treatment Frequency Of Treatment Twice a Day Treatment Plan Physical Therapy Treatment Plan Bed Mobility Training Transfer Training Gait Training Therapeutic Exercise Balance Retraining Post Op Education Discharge Planning Hot or Cold Pack Neuromuscular Re-ed Coordination Retraining Manual Therapy Other Recommendations and Next Treatment ambulation, strengthening, Focus caregiver training Recommendations To Nursing Amount of Assist Needed 1 Person Assist Discharge Recommendations PT Discharge Recommendations SNF Rehab
--- NOTE | 2017-08-10 15:34 | OT.IP.TRT ---
Current Diagnoses Chronic obstructive pulmonary disease with (acute) exacerbation (08/08/17) Unilateral primary osteoarthritis, left hip (08/08/17) Presence of unspecified artificial hip joint (08/08/17) Surgery Performed Operation Date: 08/08/17 13:45 Actual Procedures p Total Hip Arthroplasty(Left) - Harsh Henry MD Occupational Therapy Treatment Note M2 OT-IP Current Condition Start: 08/09/17 16:37 Freq: Status: Active Protocol: Document 08/10/17 14:25 PJM (Rec: 08/10/17 15:34 PJM [id number]) Occupational Therapy Current Condition Current Condition Evaluation Date 08/09/17 Treatment Diagnosis decreased self care and functional mobility Post Operative Precautions Posterior Hip Precautions No Hip Flexion > 90 degrees No Hip Internal Rotation No Hip Adduction Weight Bearing Status Weight Bearing Status Weight Bear as Tolerated M3 OT- IP Subjective and Pain Start: 08/09/17 16:37 Freq: Status: Active Protocol: Document 08/10/17 14:25 PJM (Rec: 08/10/17 15:34 PJM [id number]) OT- Subjective Occupational Therapy Visit Type Type Treatment Note Visit Start Time 13:52 Visit Stop Time 14:25 Total Visit Minutes 33 OT Pain Assessment Pain When Pain Assessed At Rest Pain Present Pain Present Denied Pain M4 OT- IP ADL's Start: 08/09/17 16:37 Freq: Status: Active Protocol: Document 08/10/17 14:25 PJM (Rec: 08/10/17 15:34 PJM [id number]) OT ADL-Dressing General Eval Lower Body Dressing Ability Moderate Assistance Assistive Devices Dressing Assistive Devices Long Handled Shoe Horn Grocery Associate Sock Aid Comments OT Dressing Comments Provided education/ demonstration to pt/ re: lower body dressing equipment. Provided mushroom growing supervisor, sock aid and long shoe horn for pt use to allow increased indep in LB dressing within posterior hip precautions. Provided education re: optimal clothing choices. OT ADL-Toileting Comments OT Toileting Comments Provided education to pt/ re: bathroom safety equipment options and to borrow BSC for use over toilet from [facility]. OT ADL-Bathing Comments OT Bathing Comments Pt has small shower seat for use in walk in shower stall at home. Long bath sponge provided. M5 OT- IP IADL's Start: 08/09/17 16:37 Freq: Status: Active Protocol: Document 08/09/17 12:19 PJM (Rec: 08/09/17 16:51 PJ [id number]) OT-Instrumental Activities of Daily Living Deficits IADL Deficits Identified Deficits Home Safety Awareness Awareness of Need for Assistance at Home Good Awareness Ability to Problem Solve Emergency Able to Problem Solve Situations Medication Management Medication Management Caregiver Provides Supervision Money Management Money Management No Deficits Identified Meal Preparation Meal Preparation Caregiver Provides Assist Food Service Worker Hospital Food Service Worker Hospital Caregiver Provides Assist Driving Driving Caregiver Provides Assist Driving Comments to assist with driving until pt able M6 OT- IP Functional Cognition Start: 08/09/17 16:37 Freq: Status: Active Protocol: Document 08/09/17 12:19 PJM (Rec: 08/09/17 16:51 PJ [email or web address]) Cognitive Factors Limiting Selfcare Function Cognitive Ability Level of Alertness Alert Patient Orientation Name Age Birthday Month Date Year Day of Week Place Situation Attention Span Ability Capable of Focused Attention Capable of Sustained Attention Ability to Follow Commands Able to Follow One Step Commands Cognitive Comments Cognitive Assessment Comments Pt recalls posterior hip precautions; needs to practice applying them during ADLS. OT- Vision and Hearing OT- Hearing Assessment OT- Hearing Assessment WFL OT- Vision Assessment Visual Acuity WFL M7 OT- IP Mobility and Balance Start: 08/09/17 16:37 Freq: Status: Active Protocol: Document 08/09/17 12:19 PJM (Rec: 08/09/17 16:51 [facility] [email or web address]) OT-Transfer Assessment Comments Mobility Comments Pt seen in recliner this session. P.T. reports pt's L leg buckling at end of their session and pt not safe to d/c home today. OT- Balance Assessment Sitting Balance and Reactions Static Sitting Balance Ability Normal M8 OT- IP Objective Assessments Start: 08/09/17 16:37 Freq: Status: Active Protocol: Document 08/09/17 12:19 PJM (Rec: 08/09/17 16:51 PJ [id number]) OT Gross Range of Motion Upper Extremity Range of Motion Assessment Right Impaired ROM Impairments R shoulder scaption limited to ~45 degrees due to old injury . Pt is R dominant OT Strength Upper Extremity Strength Assessment Within Functional Limits OT- Coordination Assessment Comments Coordination Comments BUE WFL OT-Muscle Tone Assessment Muscle Tone WNL Yes OT Sensation Assessment Comments Summary Comments BUE sensation WFL M9 OT- IP Assessment and Plan Start: 08/09/17 16:37 Freq: Status: Active Protocol: Document 08/10/17 14:25 PJM (Rec: 08/10/17 15:34 PJM [id number]) OT Summary Assessment and Plan Potential Rehabilitation Potential Good Summary OT Impairments Functional Mobility Dressing Toileting Bathing Toilet Transfers Shower Transfers Assessment Summary Pt and verbalize understanding of all education today. Pt would benefit from further practice with lower body dressing equipt to maximize independence. Per P.T . note from this AM, pt's RLE buckling more than LLE today as pt fatigues, so pt still not cleared for indep ambulation. Goals Grooming Goal Standby Assistance Dressing Goal Standby Assistance Long Handled Shoe Horn Grocery Associate Sock Aid Toileting Goal Independent Bathing Goal Minimal Assistance Toilet Transfer Goal Standby Assistance Shower Transfer Goal Standby Assistance Patient/Caregiver Education Goal Demonstrate Post-Op Precautions Caregiver Independent Assisting Patient Days to Meet Goals 3 Frequency of Treatment Frequency Of Treatment Once a Day Treatment Plan OT Treatment Plan ADL Training Functional Mobility Patient/Family Education Discharge Planning Other Treatment Recommendations and Next Practice LB dressing, grooming Treatment Focus at sink, toilet transfers, watch for buckling of BLE's!! Discharge Recommendations OT Discharge Recommendations SNF Rehab Other Discharge Recommendations SNF planned at present due to pt's BLE weakness during gait Home Equipment Needs to obtain BSC from [facility]
--- NOTE | 2017-08-10 15:43 | PT.IPTN ---
Current Diagnoses Chronic obstructive pulmonary disease with (acute) exacerbation (08/08/17) Unilateral primary osteoarthritis, left hip (08/08/17) Presence of unspecified artificial hip joint (08/08/17) Surgery Performed Operation Date: 08/08/17 13:45 Actual Procedures p Total Hip Arthroplasty(Left) - Harsh Henry MD Physical Therapy Treatment Note M2 PT-IP Current Condition Start: 08/09/17 12:29 Freq: NEEDED Status: Active Protocol: Document 08/09/17 12:29 AB (Rec: 08/09/17 12:41 AB [id number]) Physical Therapy Current Condition Current Condition Evaluation Date 08/09/17 Treatment Diagnosis s/p L MARÍA Onset Date 08/08/17 Precautions Posterior Hip Precautions No Hip Flexion > 90 degrees No Hip Internal Rotation No Hip Adduction Weight Bearing Status Weight Bearing Status Weight Bear as Tolerated M3 PT-IP Subjective Start: 08/09/17 12:29 Freq: NEEDED Status: Active Protocol: Document 08/10/17 15:15 GGD (Rec: 08/10/17 15:43 GGD [id number]) Subjective Physical Therapy Visit Type Type Treatment Note Visit Start Time 14:45 Visit Stop Time 15:15 Total Visit Minutes 30 Number of COSTUMER ASSISTANT Visits 1 Physical Therapy Visit Comments Patient Comments Pt states he is willing to get up. Therapy Pain Assessment Pain When Pain Assessed At Rest Pain Present Pain Present Pain Reported Location Left Hip Intensity 2 Scale Used Numeric (1 - 10) Pain Management Techniques Re-positioning M4 PT-IP Mobility and Gait Start: 08/09/17 12:29 Freq: NEEDED Status: Active Protocol: Document 08/10/17 15:15 GGD (Rec: 08/10/17 15:43 GGD [id number]) PT-Bed Mobility Assessment Supine to Sit Supine to Sit Minimal Assistance Scooting Scooting to Edge of Bed Standby Assistance PT-Transfer Assessment Sit to and From Stand Sit to and from Stand Contact Guard Assistance Use of Upper Extremities Equipment Transfer Assistive Device Gait Belt Front Wheeled Walker Transfers Transfer Destination Chair Comments Mobility Comments PT needed assist with left LE for bed mobility and cues for all mobility. Gait Assessment Gait Gait Assistance Required: Contact Guard Assist Distance (Feet) (feet) 60 Assistive Devices Assistive Device Gait Belt Front Wheeled Walker Gait Deviations General Gait Pattern Antalgic Decreased Stride Length Decreased Feet Clearance Step-to Gait Comments Gait Comments No knee unsteadiness or buckling with gait. M6 PT-IP Treatment Start: 08/09/17 12:29 Freq: NEEDED Status: Active Protocol: Document 08/10/17 15:15 GGD (Rec: 08/10/17 15:43 GGD [id number]) Physical Therapy Treatment Exercises Exercises Ankle Pumps Gluteal Sets Quad Sets Heel Slides Short Arc Quads Education Education Provided Precautions Safety M7 PT-IP Assessment and Plan Start: 08/09/17 12:29 Freq: NEEDED Status: Active Protocol: Document 08/10/17 15:15 GGD (Rec: 08/10/17 15:43 GGD [id number]) PT Summary Assessment and Plan Summary Assessment Summary Pt improving with mobility and gait. He need less assistance and had improved steadiness with gait. feels she can help him with getting left LE in and out of bed. Frequency of Treatment Frequency Of Treatment Twice a Day Treatment Plan Other Recommendations and Next Treatment step training, Caregiver Focus training after 9 am, and gait Recommendations To Nursing Amount of Assist Needed 1 Person Assist Discharge Recommendations PT Discharge Recommendations Home with Assistance Home Health SNF Rehab Other Discharge Recommendations SNF vs home with / assist with home health PT
[2017-08-10 15:44] VITALS: BP 112/70; PULSE 78; RESP 18; TEMP 36.4; O2SAT 92
[2017-08-10 19:14] VITALS: BP 160/71; PULSE 83; RESP 18; TEMP 37.6; O2SAT 94
[2017-08-11 00:34] VITALS: BP 147/68; PULSE 70; RESP 17; TEMP 37.4; O2SAT 92
[2017-08-11 04:41] VITALS: BP 136/75; PULSE 64; RESP 18; TEMP 37.8; O2SAT 92
[2017-08-11 05:12] VITALS: TEMP 37.4
[2017-08-11 07:35] VITALS: BP 148/71; PULSE 66; RESP 16; TEMP 37.8; O2SAT 92
[2017-08-11] MEDS: DOCUSATE 100 MG CAPSULE PO (09:05)
[2017-08-11] MEDS: NAPROXEN 250 MG TABLET PO (09:05)
[2017-08-11] MEDS: OXYCODONE/ACETAMINOPHEN 5/325 TABLET 1 TAB PO ×2 (09:05→14:01)
[2017-08-11] MEDS: GABAPENTIN 300 MG CAPSULE PO (09:05)
[2017-08-11] MEDS: SODIUM CHLORIDE 0.9% FLUSH 10 ML IV (09:06)
[2017-08-11] MEDS: ENOXAPARIN 40 MG/0.4 ML SYRINGE SUBCUT (09:06)
--- NOTE | 2017-08-11 11:26 | PT.IPTN ---
Current Diagnoses Chronic obstructive pulmonary disease with (acute) exacerbation (08/08/17) Unilateral primary osteoarthritis, left hip (08/08/17) Presence of unspecified artificial hip joint (08/08/17) Surgery Performed Operation Date: 08/08/17 13:45 Actual Procedures p Total Hip Arthroplasty(Left) - Harsh Henry MD Physical Therapy Treatment Note M2 PT-IP Current Condition Start: 08/09/17 12:29 Freq: NEEDED Status: Active Protocol: Document 08/09/17 12:29 AB (Rec: 08/09/17 12:41 AB [id number]) Physical Therapy Current Condition Current Condition Evaluation Date 08/09/17 Treatment Diagnosis s/p L MARÍA Onset Date 08/08/17 Precautions Posterior Hip Precautions No Hip Flexion > 90 degrees No Hip Internal Rotation No Hip Adduction Weight Bearing Status Weight Bearing Status Weight Bear as Tolerated M3 PT-IP Subjective Start: 08/09/17 12:29 Freq: NEEDED Status: Active Protocol: Document 08/11/17 10:05 GGD (Rec: 08/11/17 11:26 GGD [id number]) Subjective Physical Therapy Visit Type Type Treatment Note Visit Start Time 09:30 Visit Stop Time 10:05 Total Visit Minutes 35 Number of CREEL CLERK Visits 2 Physical Therapy Visit Comments Patient Comments Pt states he doing better. Therapy Pain Assessment Pain Present Pain Present Denied Pain M4 PT-IP Mobility and Gait Start: 08/09/17 12:29 Freq: NEEDED Status: Active Protocol: Document 08/11/17 10:05 GGD (Rec: 08/11/17 11:26 GGD [id number]) PT-Bed Mobility Assessment Supine to Sit Supine to Sit Minimal Assistance Sit to Supine Sit to Supine Minimal Assistance Scooting Scooting to Edge of Bed Standby Assistance PT-Transfer Assessment Sit to and From Stand Sit to and from Stand Standby Assistance Use of Upper Extremities Equipment Transfer Assistive Device Gait Belt Front Wheeled Walker Transfers Transfer Destination Bed Chair Comments Mobility Comments Caregiver training for bed mobility. was able to assist with left LE in and out of bed. Gait Assessment Gait Gait Assistance Required: Contact Guard Assist Distance (Feet) (feet) 160 Assistive Devices Assistive Device Gait Belt Front Wheeled Walker Gait Deviations General Gait Pattern Antalgic Decreased Stride Length Decreased Feet Clearance Factors Limiting Gait Function Factors Limiting Gait Function Decreased Strength Limited Range of Motion Stair Climbing Assessment Evaluation Level of Assist On Stairs Contact Guard Assistance Devices Stair Climbing Assistive Devices Front Wheel Walker Technique/Endurance Stair Climbing Direction Ascend and Descend Stair Climbing Technique Step to Step Number of Steps Climbed 1 Query Text: Stair Climbing Set # Repetitions (reps) 2 M5 PT-IP Objective Assessments Start: 08/09/17 12:29 Freq: NEEDED Status: Active Protocol: Document 08/09/17 12:29 AB (Rec: 08/09/17 12:41 AB [id number]) Orientation Orientation/Cognition Level of Alertness Alert Orientation Name Place Situation Safety Awareness Decreased Safety Awareness Strength Lower Extremity Strength Assessment Bilaterally Impaired Comments Strength Comments R hip flexion/extension: 3-/5 R knee extension: 3+/5 L knee extension: 3-/5 M6 PT-IP Treatment Start: 08/09/17 12:29 Freq: NEEDED Status: Active Protocol: Document 08/11/17 10:05 GGD (Rec: 08/11/17 11:26 GGD [id number]) Physical Therapy Treatment Exercises Exercises Ankle Pumps Gluteal Sets Quad Sets Heel Slides Short Arc Quads Education Education Provided Precautions Safety M7 PT-IP Assessment and Plan Start: 08/09/17 12:29 Freq: NEEDED Status: Active Protocol: Document 08/11/17 10:05 GGD (Rec: 08/11/17 11:26 GGD [id number]) PT Summary Assessment and Plan Summary Assessment Summary PT imrpoving with mobility. He had no LOB with gait. He able to recall 3/3/ hip precautions. was able to assist for bed mobility. Frequency of Treatment Frequency Of Treatment Twice a Day Treatment Plan Other Recommendations and Next Treatment bed mobility Focus Recommendations To Nursing Amount of Assist Needed 1 Person Assist Discharge Recommendations PT Discharge Recommendations Home with Assistance Home Health Other Discharge Recommendations home with 27/09 assist with home health PT
--- NOTE | 2017-08-11 11:33 | PM.DS.1 ---
History of Present Illness Date Patient Seen: 08/11/17 Time Patient Seen: 08:33 Chief complaint: total hip arthroplasty [id number] Narrative: Status post total hip arthroplasty Discharge Providers Date of admission: 08/08/17 09:55 Primary care physician: Suman Garcia MD Consults: 08/08/17 17:35 Consult to Discharge Planning Routine Comment: Consult to Physical Therapy Evaluate & Treat Comment: Physician Instructions: post op MARÍA protocol 08/09/17 09:03 Consult to Occupational Therapy Evaluate & Treat Comment: Physician Instructions: Evaluate and treat Discharge provider: Amira Casillas PA-C Summary Discharge Diagnosis: Status post total hip arthroplasty Hospital Course: Patient admitted for total hip arthroplasty and he consented to procedure. Hospital course was slow to recover but on postop day 3. He was doing significantly better. On postop day 3. He was ready to go home. He was urinating and eating without difficulty or assistance. He had been up and ambulating with physical therapy and OT. His has had caregiver training. Lovenox prescription provided for VTE prophylaxis. On day of discharge dressing with CDI, calves were soft, compressible, nontender bilaterally. Status at Discharge Functional status at discharge: uses cane/walker Time Spent with Patient Less than 30 minutes Exam Vital Signs (past 8 hours): Vital Signs - 8 hr 08/11/17 04:41 08/11/17 05:12 08/11/17 07:35 Temperature 100.1 F H 99.3 F 100.0 F H Pulse Rate 64 66 Respiratory Rate 18 16 Blood Pressure 136/75 H 148/71 H Pulse Oximetry 92 92 Pulse Oximetry 92 Oxygen Delivery Method Room Air Oxygen Flow Rate 0 Narrative Exam Narrative: Patient is sitting at bedside chair in no acute distress. He is alert and oriented x3. Calves are soft, compressible, and nontender bilaterally. Dressing is CDI. Sensation intact to light touch throughout bilateral lower extremities. Pulses are symmetrical. His pain is adequately controlled. He has pain medication at home. Denies any chest pain, shortness of breath, nausea, or vomiting. Objective Labs Result Diagrams: 08/09/17 04:54 Discharge Plan Discharge Plan Patient Disposition: Home, Self-Care Discharge comment: DC home today with Discharge Med Rec/Prescriptions Prescriptions: New acetaminophen 325 mg Tablet 650 mg PO Q6HR PRN (Reason: Pain, Mild) Qty: 0 RF: 0 docusate sodium 100 mg Capsule 100 mg PO BID Qty: 0 RF: 0 enoxaparin [Lovenox] 40 mg/0.4 mL Syringe 40 mg Sub-Q DAILY 6 Days RF: 0 Continue naproxen sodium [Aleve] 220 mg Capsule 220 mg PO QAM RF: 0 gabapentin [Neurontin] 300 MG capsule 300 mg PO 5XD PRN (Reason: nerve pain) RF: 0 albuterol sulfate [Ventolin HFA] 90 MCG/PUFF HFA aerosol inhaler 1 puff INH Q4HP PRN (Reason: COPD) RF: 0 budesonide-formoterol [Symbicort] 160 MCG/4.5 MCG HFA aerosol inhaler 2 puff INH PRN PRN (Reason: COPD) RF: 0 gabapentin 300 mg capsule 300 mg PO BID RF: 0 Follow up/Referrals: Harsh Henry MD [Physician] - (Please follow up in 5-7 days with DEEP) Provider Discharge Instructions Diet: Diet as Tolerated Activity: Posterior hip precautions Wound Care Report to your healthcare provider any signs of infection, such as:: chills, fever and increased pain Visit Report/Discharge Packet Instructions: DI for Hip Replacement Discharge Data Primary Care Provider: Suman Garcia Attending Provider: Harsh Henry Admit Date/Time: 08/08/17 09:55 Quality VTE Deep Vein Thrombosis/Pulmonary Embolism Present on Admission: No
--- NOTE | 2017-08-11 11:36 | P.DS_ITS ---
History of Present Illness Date Patient Seen: 08/11/17 Time Patient Seen: 08:33 Chief complaint: total hip arthroplasty [id number] Narrative: Status post total hip arthroplasty Discharge Providers Date of admission: 08/08/17 09:55 Primary care physician: Suman Garcia MD Consults: 08/08/17 17:35 Consult to Discharge Planning Routine Comment: Consult to Physical Therapy Evaluate & Treat Comment: Physician Instructions: post op MARÍA protocol 08/09/17 09:03 Consult to Occupational Therapy Evaluate & Treat Comment: Physician Instructions: Evaluate and treat Discharge provider: Amira Casillas PA-C Summary Discharge Diagnosis: Status post total hip arthroplasty Hospital Course: Patient admitted for total hip arthroplasty and he consented to procedure. Hospital course was slow to recover but on postop day 3. He was doing significantly better. On postop day 3. He was ready to go home. He was urinating and eating without difficulty or assistance. He had been up and ambulating with physical therapy and OT. His has had caregiver training. Lovenox prescription provided for VTE prophylaxis. On day of discharge dressing with CDI, calves were soft, compressible, nontender bilaterally. Status at Discharge Functional status at discharge: uses cane/walker Time Spent with Patient Less than 30 minutes Exam Vital Signs (past 8 hours): Vital Signs - 8 hr 3 08/11/17 04:41 08/11/17 05:12 08/11/17 07:35 Temperature 100.1 F H 99.3 F 100.0 F H Pulse Rate 64 66 Respiratory Rate 18 16 Blood Pressure 136/75 H 148/71 H Pulse Oximetry 92 92 Pulse Oximetry 92 Oxygen Delivery Method Room Air Oxygen Flow Rate 0 Narrative Exam Narrative: Patient is sitting at bedside chair in no acute distress. He is alert and oriented x3. Calves are soft, compressible, and nontender bilaterally. Dressing is CDI. Sensation intact to light touch throughout bilateral lower extremities. Pulses are symmetrical. His pain is adequately controlled. He has pain medication at home. Denies any chest pain, shortness of breath, nausea, or vomiting. Objective Labs Result Diagrams: 08/09/17 04:54 Discharge Plan Discharge Plan Patient Disposition: Home, Self-Care Discharge comment: DC home today with Discharge Med Rec/Prescriptions Prescriptions: New acetaminophen 325 mg Tablet 650 mg PO Q6HR PRN (Reason: Pain, Mild) Qty: 0 RF: 0 docusate sodium 100 mg Capsule 100 mg PO BID Qty: 0 RF: 0 enoxaparin [Lovenox] 40 mg/0.4 mL Syringe 40 mg Sub-Q DAILY 6 Days RF: 0 Continue naproxen sodium [Aleve] 220 mg Capsule 220 mg PO QAM RF: 0 gabapentin [Neurontin] 300 MG capsule 300 mg PO 5XD PRN (Reason: nerve pain) RF: 0 albuterol sulfate [Ventolin HFA] 90 MCG/PUFF HFA aerosol inhaler 1 puff INH Q4HP PRN (Reason: COPD) RF: 0 budesonide-formoterol [Symbicort] 160 MCG/4.5 MCG HFA aerosol inhaler 2 puff INH PRN PRN (Reason: COPD) RF: 0 gabapentin 300 mg capsule 300 mg PO BID RF: 0 Follow up/Referrals: Harsh Henry MD [Physician] - (Please follow up in 5-7 days with PAKarmen) Provider Discharge Instructions Diet: Diet as Tolerated Activity: Posterior hip precautions Wound Care Report to your healthcare provider any signs of infection, such as:: chills, fever and increased pain Visit Report/Discharge Packet Instructions: DI for Hip Replacement Discharge Data Primary Care Provider: Suman Garcia Attending Provider: Harsh Henry Admit Date/Time: 08/08/17 09:55 Quality VTE Deep Vein Thrombosis/Pulmonary Embolism Present on Admission: No
--- NOTE | 2017-08-11 11:38 | CM.DPC ---
DCP Discharge Home SW called Jacqui at [facility] to follow up on status of insurance auth for SNF for the pt and they are still waiting for review/auth for the pt. Per PT, pt has made significant progress and now recommending safe d/c home with spouse and HH when medically stable. Pt did well with stair training and caregiver training went well. SW met bedside with pt and spouse and explained role and discussed current d/c recommendations and both are agreeable and preference is home with HH and they have outpt therapy already set up in a week if needed. SW discussed the current HH agency that serves the [facility] and both agreeable to referral made to [facility]. SW called [facility] for new referral and they currently are still not contracted with [facility] and cannot accept the referral. No other HH agencies serve [facility]. SW updated RN, IRRIGATION SPECIALIST, and Ortho PA and all agreeable with d/c home with outpt therapy and no HH and updated spouse and pt bedside together and they are feeling comfortable with d/c home and outpt therapy pending the car transfer training today. YASHIRA discussed resources if pt gets home and is not progressing like anticipated and both were thankful for the information. Called [facility] and updated on pt d/c plan of home. Plan: Patient to d/c home today via spouse POV and outpt therapy scheduled already pending car transfer training. JENNA Hernandez
--- NOTE | 2017-08-11 13:07 | OT.IP.TRT ---
Current Diagnoses Chronic obstructive pulmonary disease with (acute) exacerbation (08/08/17) Unilateral primary osteoarthritis, left hip (08/08/17) Presence of unspecified artificial hip joint (08/08/17) Surgery Performed Operation Date: 08/08/17 13:45 Actual Procedures p Total Hip Arthroplasty(Left) - Harsh Henry MD Occupational Therapy Treatment Note M2 OT-IP Current Condition Start: 08/09/17 16:37 Freq: Status: Active Protocol: Document 08/10/17 14:25 PJM (Rec: 08/10/17 15:34 PJM [id number]) Occupational Therapy Current Condition Current Condition Evaluation Date 08/09/17 Treatment Diagnosis decreased self care and functional mobility Post Operative Precautions Posterior Hip Precautions No Hip Flexion > 90 degrees No Hip Internal Rotation No Hip Adduction Weight Bearing Status Weight Bearing Status Weight Bear as Tolerated M3 OT- IP Subjective and Pain Start: 08/09/17 16:37 Freq: Status: Active Protocol: Document 08/11/17 11:00 [facility] (Rec: 08/11/17 13:06 [facility] [email or web address]) OT- Subjective Occupational Therapy Visit Type Type Treatment Note Visit Start Time 11:00 Visit Stop Time 11:30 Total Visit Minutes 30 Occupational Therapy Visit Comments Patient/Caregiver Goals To be able to go home today. OT Pain Assessment Pain When Pain Assessed At Rest Pain Present Pain Present Denied Pain M4 OT- IP ADL's Start: 08/09/17 16:37 Freq: Status: Active Protocol: Document 08/11/17 11:00 [facility] (Rec: 08/11/17 13:06 [facility] [email or web address]) OT ADL-Dressing General Eval Lower Body Dressing Ability Minimal Assistance Maximum Assistance Assistive Devices Dressing Assistive Devices Long Handled Shoe Horn Sewer Pipe Offbearer Sock Aid Comments OT Dressing Comments vc to remind pt to use AED, vc for to be there to assist. If pt having to do LB dressing if not there would be MAX A. OT ADL-Toileting General Evaluation Toileting Ability Standby Assistance Devices Toileting Assistive Devices Commode Grab Bars Urinal Comments OT Toileting Comments VC for to remind pt of hip precaution needs, place leg out prior to sitting, stand to wipe,etc... Pt's tends to provide distant supervision instead of hands on. OT ADL-Bathing Bathing Type Bathing Type Shower M5 OT- IP IADL's Start: 08/09/17 16:37 Freq: Status: Active Protocol: Document 08/09/17 12:19 PJM (Rec: 08/09/17 16:51 [facility] [email or web address]) OT-Instrumental Activities of Daily Living Deficits IADL Deficits Identified Deficits Home Safety Awareness Awareness of Need for Assistance at Home Good Awareness Ability to Problem Solve Emergency Able to Problem Solve Situations Medication Management Medication Management Caregiver Provides Supervision Money Management Money Management No Deficits Identified Meal Preparation Meal Preparation Caregiver Provides Assist Baggage Agent Baggage Agent Caregiver Provides Assist Driving Driving Caregiver Provides Assist Driving Comments to assist with driving until pt able M6 OT- IP Functional Cognition Start: 08/09/17 16:37 Freq: Status: Active Protocol: Document 08/11/17 11:00 [facility] (Rec: 08/11/17 13:06 [facility] [email or web address]) Cognitive Factors Limiting Selfcare Function Cognitive Ability Level of Alertness Alert Confusional State Attention Span Ability Capable of Focused Attention Unable to Focus Ability to Follow Commands Able to Follow One Step Commands Memory Description Short Term Impaired Safety Awareness Decreased Recall of Precautions Decreased Ability to Apply Precautions Underestimates Need for Assistance Cognitive Comments Cognitive Assessment Comments Unable to apply precautions during dressing and toileting needs and have to remind to remind pt. Pt's not reliable to provide precautions to pt timely at times. In addition pt's did not recall to use kitchen chair when PT recommended yesterday and still trying to figure out how to keep office chair from rolling at home. M7 OT- IP Mobility and Balance Start: 08/09/17 16:37 Freq: Status: Active Protocol: Document 08/11/17 11:00 [facility] (Rec: 08/11/17 13:06 [facility] [email or web address]) OT-Transfer Assessment Sit to and From Stand Sit to and from Stand Standby Assistance Minimal Assistance Transfers Transfer Ability Standby Assistance Minimal Assistance Comments Mobility Comments Pt standing up from the chair and did not realize one side of chair not locked and had to steady him from falling . Pt states will be using office chair with wheels at home. However when asked if they have another chair to use , remembered they have another option of use of high kitchen chair. OT- Balance Assessment Standing Balance and Reactions Static Standing Balance Ability Fair Dynamic Standing Balance Ability Poor M8 OT- IP Objective Assessments Start: 08/09/17 16:37 Freq: Status: Active Protocol: Document 08/09/17 12:19 PJM (Rec: 08/09/17 16:51 PJM [email or web address]) OT Gross Range of Motion Upper Extremity Range of Motion Assessment Right Impaired ROM Impairments R shoulder scaption limited to ~45 degrees due to old injury . Pt is R dominant OT Strength Upper Extremity Strength Assessment Within Functional Limits OT- Coordination Assessment Comments Coordination Comments BUE WFL OT-Muscle Tone Assessment Muscle Tone WNL Yes OT Sensation Assessment Comments Summary Comments BUE sensation WFL M9 OT- IP Assessment and Plan Start: 08/09/17 16:37 Freq: Status: Active
--- NOTE | 2017-08-11 13:12 | OT.IP.TRT ---
Current Diagnoses Chronic obstructive pulmonary disease with (acute) exacerbation (08/08/17) Unilateral primary osteoarthritis, left hip (08/08/17) Presence of unspecified artificial hip joint (08/08/17) Surgery Performed Operation Date: 08/08/17 13:45 Actual Procedures p Total Hip Arthroplasty(Left) - Harsh Henry MD Occupational Therapy Treatment Note M2 OT-IP Current Condition Start: 08/09/17 16:37 Freq: Status: Active Protocol: Document 08/10/17 14:25 [facility] (Rec: 08/10/17 15:34 PJM [id number]) Occupational Therapy Current Condition Current Condition Evaluation Date 08/09/17 Treatment Diagnosis decreased self care and functional mobility Post Operative Precautions Posterior Hip Precautions No Hip Flexion > 90 degrees No Hip Internal Rotation No Hip Adduction Weight Bearing Status Weight Bearing Status Weight Bear as Tolerated M3 OT- IP Subjective and Pain Start: 08/09/17 16:37 Freq: Status: Active Protocol: Document 08/11/17 11:00 [facility] (Rec: 08/11/17 13:06 [facility] [email or web address]) OT- Subjective Occupational Therapy Visit Type Type Treatment Note Visit Start Time 11:00 Visit Stop Time 11:30 Total Visit Minutes 30 Occupational Therapy Visit Comments Patient/Caregiver Goals To be able to go home today. OT Pain Assessment Pain When Pain Assessed At Rest Pain Present Pain Present Denied Pain M4 OT- IP ADL's Start: 08/09/17 16:37 Freq: Status: Active Protocol: Document 08/11/17 11:00 [facility] (Rec: 08/11/17 13:06 [facility] [email or web address]) OT ADL-Dressing General Eval Lower Body Dressing Ability Minimal Assistance Maximum Assistance Assistive Devices Dressing Assistive Devices Long Handled Shoe Horn Rigging Helper Sock Aid Comments OT Dressing Comments vc to remind pt to use AED, vc for to be there to assist. If pt having to do LB dressing if not there would be MAX A. OT ADL-Toileting General Evaluation Toileting Ability Standby Assistance Devices Toileting Assistive Devices Commode Grab Bars Urinal Comments OT Toileting Comments VC for to remind pt of hip precaution needs, place leg out prior to sitting, stand to wipe,etc... Pt's tends to provide distant supervision instead of hands on. OT ADL-Bathing Bathing Type Bathing Type Shower M5 OT- IP IADL's Start: 08/09/17 16:37 Freq: Status: Active Protocol: Document 08/09/17 12:19 PJM (Rec: 08/09/17 16:51 PJM [email or web address]) OT-Instrumental Activities of Daily Living Deficits IADL Deficits Identified Deficits Home Safety Awareness Awareness of Need for Assistance at Home Good Awareness Ability to Problem Solve Emergency Able to Problem Solve Situations Medication Management Medication Management Caregiver Provides Supervision Money Management Money Management No Deficits Identified Meal Preparation Meal Preparation Caregiver Provides Assist Vpk Teacher Vpk Teacher Caregiver Provides Assist Driving Driving Caregiver Provides Assist Driving Comments to assist with driving until pt able M6 OT- IP Functional Cognition Start: 08/09/17 16:37 Freq: Status: Active Protocol: Document 08/11/17 11:00 [facility] (Rec: 08/11/17 13:06 [facility] [email or web address]) Cognitive Factors Limiting Selfcare Function Cognitive Ability Level of Alertness Alert Confusional State Attention Span Ability Capable of Focused Attention Unable to Focus Ability to Follow Commands Able to Follow One Step Commands Memory Description Short Term Impaired Safety Awareness Decreased Recall of Precautions Decreased Ability to Apply Precautions Underestimates Need for Assistance Cognitive Comments Cognitive Assessment Comments Unable to apply precautions during dressing and toileting needs and have to remind to remind pt. Pt's not reliable to provide precautions to pt timely at times. In addition pt's did not recall to use kitchen chair when PT recommended yesterday and still trying to figure out how to keep office chair from rolling at home. M7 OT- IP Mobility and Balance Start: 08/09/17 16:37 Freq: Status: Active Protocol: Document 08/11/17 11:00 [facility] (Rec: 08/11/17 13:06 [facility] [email or web address]) OT-Transfer Assessment Sit to and From Stand Sit to and from Stand Standby Assistance Minimal Assistance Transfers Transfer Ability Standby Assistance Minimal Assistance Comments Mobility Comments Pt standing up from the chair and did not realize one side of chair not locked and had to steady him from falling . Pt states will be using office chair with wheels at home. However when asked if they have another chair to use , remembered they have another option of use of high kitchen chair. OT- Balance Assessment Standing Balance and Reactions Static Standing Balance Ability Fair Dynamic Standing Balance Ability Poor M8 OT- IP Objective Assessments Start: 08/09/17 16:37 Freq: Status: Active Protocol: Document 08/09/17 12:19 PJM (Rec: 08/09/17 16:51 PJM [email or web address]) OT Gross Range of Motion Upper Extremity Range of Motion Assessment Right Impaired ROM Impairments R shoulder scaption limited to ~45 degrees due to old injury . Pt is R dominant OT Strength Upper Extremity Strength Assessment Within Functional Limits OT- Coordination Assessment Comments Coordination Comments BUE WFL OT-Muscle Tone Assessment Muscle Tone WNL Yes OT Sensation Assessment Comments Summary Comments BUE sensation WFL M9 OT- IP Assessment and Plan Start: 08/09/17 16:37 Freq: Status: Active Protocol: Document 08/11/17 13:08 [facility] (Rec: 08/11/17 13:12 [facility] [email or web address]) OT Summary Assessment and Plan Goals Patient/Caregiver Education Goal Demonstrate Post-Op Precautions Caregiver Independent Assisting Patient Days to Meet Goals 2 Frequency of Treatment Frequency Of Treatment Once a Day Treatment Plan OT Treatment Plan ADL Training Functional Mobility Patient/Family Education Discharge Planning Other Treatment Recommendations and Next Caregiver training with Treatment Focus and needs for education for safety to assist pt in a timely manner. Home health not available for pt and would strongly benefit from skilled rehab to continue to go over hip precautions with pt and . Pt is a high fall risk at this time. Discharge Recommendations OT Discharge Recommendations SNF Rehab
--- NOTE | 2017-08-11 14:04 | PC.NURSE ---
discharge instructions and home care handouts reviewed with patient and spouse, patient and spouse state understanding and have no further questions or concerns at this time. boarding pass given for [place]. states patient already has appointments scheduled. waiting for pt. to assist with teaching on how to get in and out of car. call light within reach.
--- NOTE | 2017-08-11 15:33 | PT.IPTN ---
Current Diagnoses Chronic obstructive pulmonary disease with (acute) exacerbation (08/08/17) Unilateral primary osteoarthritis, left hip (08/08/17) Presence of unspecified artificial hip joint (08/08/17) Surgery Performed Operation Date: 08/08/17 13:45 Actual Procedures p Total Hip Arthroplasty(Left) - Harsh Henry MD Physical Therapy Treatment Note M3 PT-IP Subjective Start: 08/09/17 12:29 Freq: NEEDED Status: Active Protocol: Document 08/11/17 14:15 [facility] (Rec: 08/11/17 15:32 [facility] [email or web address]) Subjective Physical Therapy Visit Type Type Treatment Note Visit Start Time 14:15 Visit Stop Time 14:40 Total Visit Minutes 25 Number of BAND DIRECTOR Visits 3 Physical Therapy Visit Comments Patient Comments Pt ready to go home. Therapy Pain Assessment Pain When Pain Assessed During Mobility Pain Present Pain Present Pain Reported M4 PT-IP Mobility and Gait Start: 08/09/17 12:29 Freq: NEEDED Status: Active Protocol: Document 08/11/17 14:15 [facility] (Rec: 08/11/17 15:32 [facility] [email or web address]) PT-Transfer Assessment Sit to and From Stand Sit to and from Stand Standby Assistance Use of Upper Extremities Equipment Transfer Assistive Device Gait Belt Front Wheeled Walker Transfers Transfer Destination Wheelchair Car Transfer Ability Level of Assist Minimal Assistance Use of Upper Extremities Comments Mobility Comments Pt need cues for safe car transfer with hip precautions. Gait Assessment Gait Gait Assistance Required: Contact Guard Assist Distance (Feet) (feet) 40 Assistive Devices Assistive Device Gait Belt Front Wheeled Walker Factors Limiting Gait Function Factors Limiting Gait Function Decreased Strength Limited Range of Motion M6 PT-IP Treatment Start: 08/09/17 12:29 Freq: NEEDED Status: Active Protocol: Document 08/11/17 14:15 [facility]GD (Rec: 08/11/17 15:32 [facility] [email or web address]) Physical Therapy Treatment Exercises Exercises Ankle Pumps Gluteal Sets Quad Sets Heel Slides Short Arc Quads Education Education Provided Precautions Safety M7 PT-IP Assessment and Plan Start: 08/09/17 12:29 Freq: NEEDED Status: Active Protocol: Document 08/11/17 14:15 [facility]GD (Rec: 08/11/17 15:32 [facility] [email or web address]) PT Summary Assessment and Plan Summary Assessment Summary Pt improving with sit to stand and gait. He need assist with left LE in to car. Frequency of Treatment Frequency Of Treatment Twice a Day Treatment Plan Other Recommendations and Next Treatment ambulation, strengthening, Focus caregiver training Recommendations To Nursing Amount of Assist Needed 1 Person Assist Discharge Recommendations PT Discharge Recommendations Home with Assistance Home Health Other Discharge Recommendations home with / assist with home health PT
--- NOTE | 2017-08-12 15:38 | CM.DPNOTE ---
Faxed DC summary to [facility] per request F [phone] ref # [id number]. MAU
== END 2017-08-11 14:30 | disposition home or self-care (01) | DRG 470 ==
PROVIDERS: Admitting Provider Orthopaedic Surgery; PCP Family Medicine; Visit Provider Orthopaedic Surgery
PROC: 0SRB0JZ Replacement of Left Hip Joint with Synthetic Substitute, Open Approach (ICD-10-PCS; CPT 27130; principal; 2017-08-08 13:45)
DX: M16.12 Unilateral primary osteoarthritis, left hip (principal); J44.9 Chronic obstructive pulmonary disease, unspecified; K21.9 Gastro-esophageal reflux disease without esophagitis
CPT/HCPCS: 73501; 85014; 85018; 94760; 97110; 97116; 97162; 97165; 97530; 97535; C1776; C9290; J0690; J1650; J2250; J2274; J2405; J2704; J2765; J3010

== ENCOUNTER 2017-08-14 18:33 | Emergency (ER) | payer OTHER, SELFPAY ==
[2017-08-08 17:56] VITALS: BMI 28.2
[2017-08-14 18:36] VITALS: BP 170/86; PULSE 77; RESP 16; TEMP 36.3; O2SAT 96; BMI 28.1
--- NOTE | 2017-08-14 19:08 | ED_ITS ---
HPI - Male Genitourinary General Chief complaint: Urogenital-Male Stated complaint: no bowel movement since the 4th Time Seen by Provider: 08/14/17 18:36 Source: patient Mode of arrival: ambulatory Limitations: no limitations History of Present Illness HPI Narrative: 77-year-old male here for evaluation of constipation and inability to urinate. Patient states that within the past 10 days he had a left hip replacement. States he was on pain meds for this afterwards. States that he was not on any sort of stool softeners during that time. He is currently off of pain medication. States that his left hip is doing well. States he has not had a bowel movement since prior to the surgery. He states that since this morning he has been unable to urinate. Has had some dribbling in the urge to urinate. Has never had any problems with urinary retention in the past. Has never had any problems with constipation in the past. Has had bowel surgeries in the past after a trauma incident. No fevers. No flank pain. Did try MiraLax this morning for the constipation with only minimal results. Related Data Home Medications Medication Instructions Recorded Confirmed albuterol sulfate [Ventolin HFA] 1 puff INH Q4HP PRN 08/04/17 08/08/17 budesonide-formoterol [Symbicort] 2 puff INH PRN PRN 08/04/17 08/08/17 gabapentin [Neurontin] 300 mg PO 5XD PRN 08/04/17 08/04/17 naproxen sodium [Aleve] 220 mg PO QAM 08/04/17 08/08/17 gabapentin 300 mg PO BID 08/08/17 08/08/17 Previous Rx's Medication Instructions Recorded acetaminophen 650 mg PO Q6HR PRN #0 tab 08/11/17 docusate sodium 100 mg PO BID #0 cap 08/11/17 enoxaparin [Lovenox] 40 mg SUB-Q DAILY 6 Days ml 08/11/17 Allergies Allergy/AdvReac Type Severity Reaction Status Date / Time No Known Allergies Allergy Uncoded 08/14/17 18:42 Review of Systems Constitutional Denies chills, Denies fever(s), Denies lethargy and Denies weakness ENT Ears, Nose, Mouth, and Throat: Denies dizziness Cardiovascular Denies chest pain, Denies syncope, Denies irregular heart rhythm, Denies lightheadedness, Denies palpitations, Denies dyspnea, Denies dyspnea on exertion and Denies orthopnea Respiratory Denies cough, Denies dyspnea, Denies dyspnea on exertion and Denies wheezing Gastrointestinal Gastrointestinal: Denies abdominal pain, Reports constipation, Denies nausea and Denies vomiting Genitourinary Denies dysuria, Denies flank pain and Reports urinary incontinence Comments: Urinary retention Musculoskeletal Comments: Postop left hip pain that is improving Integumentary/Breasts Denies pruritus, Denies erythema, Denies rash and Denies wounds Neurologic Denies dizziness, Denies syncope, Denies focal weakness and Denies weakness Endocrine Denies palpitations Hematologic/Lymphatic Denies easy bruising Allergic/Immunologic Denies wheezing [facility] Medical History Acid reflux (Acute) COPD (chronic obstructive pulmonary disease) (Acute) Depression (Acute) Enlarged prostate (Acute) Hernia (Acute) Insomnia (Acute) Kidney stones (Acute) Pancreatitis (Acute) Pelvic fracture (Acute) Pneumonia (Acute) TMJ (temporomandibular joint syndrome) (Acute) Ulcer (Acute) Urinary frequency (Acute) Urinary urgency (Acute) Surgical History H/O abdominal surgery (Acute) History of cholecystectomy (Acute) History of total right hip arthroplasty (Acute) History of vasectomy (Acute) Hx of tonsillectomy (Acute) Social History Smoking Status: Never smoker Exam Initial Vital Signs Initial Vital Signs: Vital Signs Temperature 97.3 F L 08/14/17 18:36 Pulse Rate 77 08/14/17 18:36 Respiratory Rate 16 08/14/17 18:36 Blood Pressure 170/86 H 08/14/17 18:36 Pulse Oximetry 96 08/14/17 18:36 Const General: cooperative and well developed Nutritional Appearance: well nourished Orientation: alert, awake, oriented x3 and not confused Resp Effort & Inspection: normal respiratory effort, able to speak in complete sentences, no respiratory distress and no use of accessory muscles Auscultation: clear to auscultation bilaterally, no rales, no rhonchi and no wheezes Cardio Rate: regular rate Rhythm: regular rhythm Heart Sounds: no click, no gallops, no murmurs and no rubs Pulses: normal peripheral pulses GI Other: Abdomen is soft, nondistended, no rebound, no guarding, does have a midline hernia that is not new. Rectal exam has stool in the rectal vault. No gross blood. Back/Spine/Pelvis Back: No CVA tenderness Neuro General: alert, oriented x3, gait normal and no focal motor deficits Cognition: normal cognition Speech: speech normal Extrem Other: Well healing surgical scar with bandages in place over his left hip Course Orders Ordered: ED Orders 08/14/17 19:40 Urinalysis and Microscopic Stat Urine Culture Stat Discontinued Medications Sodium Biphosphate/Sodium Phosphate (Fleet Enema) 1 each [place] NOW ONE Stop: 08/14/17 19:09 Last Admin: 08/14/17 19:18 Dose: 1 each Vital Signs - 8 hr 08/14/17 18:36 08/14/17 20:09 Temperature 97.3 F L Pulse Rate 77 73 Respiratory Rate 16 15 Blood Pressure 170/86 H Blood Pressure [Right Arm] 174/70 H Pulse Oximetry 96 96 [facility] - Male Genitourinary Lab Data Attestation: I reviewed the patient's lab results. Lab Results 08/14/17 Range/Units 19:40 Urine Color Yellow Urine Appearance Clear Urine pH 7.0 (4.5-8.0) Ur Specific [place] 1.010 (1.000-1.035) Urine Protein Negative (Negative) Urine Glucose (UA) Negative (Normal) g/dL Urine Ketones Trace H (NEGATIVE) Urine Occult Blood Trace-intact (Negative) Urine Nitrate Negative (Negative) Urine Bilirubin Negative (NEGATIVE) Urine Urobilinogen 1.0 (0.2) E.U./dL Ur Leukocyte Esterase Negative (NEGATIVE) Urine RBC 1-5/hpf (0-5/HPF) Urine WBC 0-1/hpf (0-5/HPF) Ur Squamous Epith Cells 0-1 /hpf Amorphous Sediment 1+ Urine Bacteria Occasional (0-1) (None) Ur Culture Indicated? Not Reportable Micro UA Comment Not Reportable [facility] Narrative Medical decision making narrative: Patient with Carrillo catheter in place and 400 cc of urine. Patient states that he feels better with regard to this. No signs of urinary tract infection. I suspect it was only 400 cc despite not having urinated since this morning because the patient states that once he started having problems urinating he quit eating and drinking. The enema here in the emergency department was unsuccessful. I did manually disimpact the patient and he was able to pass stool on his own after that. He states that he feels better after this. We did discuss home laxative use to include MiraLax. He does have a follow-up appointment tomorrow with his orthopedic doctor. He was instructed to keep this appointment. He was also instructed that he needed to contact his primary doctor regarding the Carrillo to have it removed later this week. He was given a leg bag and care instructions. His was at bedside for these discussions. He was given return precautions. He expressed understanding and agreement with plan. Discharge Plan Departure Patient Disposition: Home, Self-Care Clinical Impression: Acute retention of urine, Constipation Instructions: How to Care for Your Carrillo Catheter -- Male, DI for Constipation , DI for Urinary Retention in Men Activity Restrictions/Additional Instructions: Take all of your medications at like we discussed. Keep her follow-up appointment tomorrow with the orthopedic doctors. Call your primary doctor tomorrow to discuss follow-up with regard to your Carrillo catheter. Return to the emergency department for any new or worsening symptoms Prescriptions: No Action naproxen sodium [Aleve] 220 mg Capsule 220 mg PO QAM RF: 0 gabapentin [Neurontin] 300 MG capsule 300 mg PO 5XD PRN (Reason: nerve pain) RF: 0 albuterol sulfate [Ventolin HFA] 90 MCG/PUFF HFA aerosol inhaler 1 puff INH Q4HP PRN (Reason: COPD) RF: 0 budesonide-formoterol [Symbicort] 160 MCG/4.5 MCG HFA aerosol inhaler 2 puff INH PRN PRN (Reason: COPD) RF: 0 gabapentin 300 mg capsule 300 mg PO BID RF: 0 acetaminophen 325 mg Tablet 650 mg PO Q6HR PRN (Reason: Pain, Mild) Qty: 0 RF: 0 docusate sodium 100 mg Capsule 100 mg PO BID Qty: 0 RF: 0 enoxaparin [Lovenox] 40 mg/0.4 mL Syringe 40 mg Sub-Q DAILY 6 Days RF: 0
[2017-08-14] MEDS: FLEETS ENEMA 1 EACH PR (19:18)
[2017-08-14 19:57] LABS: Appearance Urine UA CLEAR; Bilirubin Urine UA NEGATIVE (NEGATIVE); Color Urine UA YELLOW; Glucose Urine UA NEGATIVE (Normal); Ketones Urine UA TRACE (NEGATIVE); Leukocyte Esterase Urine UA NEGATIVE (NEGATIVE); Nitrite Urine UA Negative (Negative); Occult Blood Urine UA TRACE-INTACT (Negative); Protein Urine UA NEGATIVE (Negative)
[2017-08-14 20:04] LABS: RBC Urine 1-5/HPF (0-5/HPF); Squamous Epithelial Cell Urine 0-1 /HPF; WBC Urine 0-1/HPF (0-5/HPF)
[2017-08-14 20:05] LABS: Amorphous Sediment Urine 1+; Bacteria Urine Occasional (0-1)
[2017-08-14 20:09] VITALS: BP 174/70; PULSE 73; RESP 15; O2SAT 96
[2017-08-14 20:56] VITALS: BP 160/63; PULSE 73; RESP 14; O2SAT 95
== END 2017-08-14 21:06 | disposition home or self-care (01) ==
PROVIDERS: Emergency Provider Emergency Medicine; PCP Family Medicine
DX: R33.9 Retention of urine, unspecified (principal); K59.00 Constipation, unspecified
CPT/HCPCS: 51701; 51705; 51798; 81001; 87086; 99283; 99284

== ENCOUNTER → 2020-11-13 14:04 | Outpatient (CLI) | payer OTHER, SELFPAY ==
[2017-08-08 17:56] VITALS: BMI 28.2
[2020-11-17 09:41] LABS: Fecal Immunochemical Test Positive (Negative)
== END ==
PROVIDERS: PCP Physician Assistant Medical; Visit Provider Physician Assistant Medical
DX: Z12.11 Encounter for screening for malignant neoplasm of colon (principal)
CPT/HCPCS: 82274

== ENCOUNTER → 2020-11-21 08:53 | Outpatient (CLI) | payer MEDICARE, SELFPAY ==
[2017-08-08 17:56] VITALS: BMI 28.2
[2020-11-21 20:04] LABS: Add Manual Diff / Slide Review NO; Basophils Absolute Auto 0 /uL (0-100); Basophils Percent Auto 0.4 % (0-2); Eosinophils Absolute Auto 200 /uL (0-450); Eosinophils Percent Auto 2.8 % (2-4); Hematocrit 43.9 % (41-53); Hemoglobin 14.1 g/dL (13.5-17.5); Lymphocytes Absolute Auto 1300 /uL (1100-4500); Lymphocytes Percent Auto 19.4 % (25-40); Mean Corpuscular HGB Conc 32.1 % (30-36); Mean Corpuscular Hemoglobin 29.9 PG (26-34); Mean Corpuscular Volume 93.2 fL (80-100); Monocytes Absolute Auto 600 /uL (0-900); Monocytes Percent Auto 9.1 % (3-14); Neutrophils Absolute Auto 4700 /uL (1500-7000); Neutrophils Percent Auto 68.3 % (50-75); Platelet Count 148 X10^3/uL (150-400); Red Blood Cell Count 4.71 X10^6/uL (4.5-5.9); Red Cell Distribution Width 13.7 % (11.6-14.8); White Blood Cell Count 6.9 X10^3/uL (4.5-11.0)
== END ==
PROVIDERS: PCP Physician Assistant Medical; Visit Provider Physician Assistant Medical
DX: K92.2 Gastrointestinal hemorrhage, unspecified (principal)
CPT/HCPCS: 85025

== ENCOUNTER → 2021-02-05 09:06 | Outpatient (CLI) | payer MEDICARE, SELFPAY ==
[2017-08-08 17:56] VITALS: BMI 28.2
[2021-02-05 19:00] LABS: Hemoglobin A1C% w Est Avg Glu 6.1 % (4.0-6.0)
[2021-02-05 19:08] LABS: HEMOLYSIS < 15 (0-50); Sodium 140 mmol/L (137-145)
[2021-02-05 19:10] LABS: Alanine Aminotransferase 12 IU/L (<50); Albumin 3.9 g/dL (3.5-5.0); Albumin Globulin Ratio 1.3 (1.0-2.8); Alkaline Phosphatase 96 U/L (38-126); Aspartate Aminotransferase 22 IU/L (17-59); BUN Creatinine Ratio 16.7 (6-22); Bilirubin Total 1.2 mg/dL (0.2-1.3); Blood Urea Nitrogen 14 mg/dL (9-20); Calcium 9.4 mg/dL (8.4-10.2); Carbon Dioxide 30 mmol/L (22-32); Chloride 104 mmol/L (98-107); Cholesterol 258 mg/dL (140-199); Estimated Glomerular Filt Rate > 60.0 mL/min (>60); Globulin 2.9 g/dL (1.7-4.1); Glucose 117 mg/dL (80-110); HDL Cholesterol 46 mg/dL (40-60); LDL Cholesterol Calculated 192 mg/dL (<100); Potassium 4.3 mmol/L (3.4-5.1); Total Protein 6.8 g/dL (6.3-8.2); Triglycerides 99 mg/dL (35-150)
[2021-02-05 19:18] LABS: Add Manual Diff / Slide Review NO; Basophils Absolute Auto 0 /uL (0-100); Basophils Percent Auto 0.6 % (0-2); Eosinophils Absolute Auto 200 /uL (0-450); Eosinophils Percent Auto 3.6 % (2-4); Hematocrit 42.4 % (41-53); Hemoglobin 14.2 g/dL (13.5-17.5); Lymphocytes Absolute Auto 1100 /uL (1100-4500); Lymphocytes Percent Auto 22.4 % (25-40); Mean Corpuscular HGB Conc 33.5 % (30-36); Mean Corpuscular Hemoglobin 30.7 PG (26-34); Mean Corpuscular Volume 91.5 fL (80-100); Monocytes Absolute Auto 500 /uL (0-900); Monocytes Percent Auto 10.3 % (3-14); Neutrophils Absolute Auto 3100 /uL (1500-7000); Neutrophils Percent Auto 63.1 % (50-75); Platelet Count 174 X10^3/uL (150-400); Red Blood Cell Count 4.63 X10^6/uL (4.5-5.9); Red Cell Distribution Width 13.6 % (11.6-14.8); White Blood Cell Count 4.9 X10^3/uL (4.5-11.0)
[2021-02-05 19:41] LABS: TSH w/ Reflex to FT4 1.98 uIU/mL (0.47-4.68)
[2021-02-05 19:42] LABS: Prostate Specific Antigen 1.96 ng/mL (0.10-4.00)
== END ==
PROVIDERS: PCP Physician Assistant Medical; Referring Provider Physician Assistant Medical; Visit Provider Physician Assistant Medical
DX: J44.9 Chronic obstructive pulmonary disease, unspecified (principal); K92.2 Gastrointestinal hemorrhage, unspecified; Z13.220 Encounter for screening for lipoid disorders; Z12.5 Encounter for screening for malignant neoplasm of prostate; Z13.228 Encounter for screening for other metabolic disorders; Z13.0 Encounter for screening for diseases of the blood and blood-forming organs and certain disorders involving the immune mechanism; Z13.29 Encounter for screening for other suspected endocrine disorder; Z13.1 Encounter for screening for diabetes mellitus
CPT/HCPCS: 80053; 80061; 83036; 84153; 84443; 85025

== ENCOUNTER → 2021-02-06 10:08 | Outpatient (CLI) | payer MEDICARE, SELFPAY ==
[2017-08-08 17:56] VITALS: BMI 28.2
[2021-02-10 13:16] LABS: Fecal Immunochemical Test Positive (Negative)
== END ==
PROVIDERS: PCP Physician Assistant Medical; Visit Provider Physician Assistant Medical
DX: K92.2 Gastrointestinal hemorrhage, unspecified (principal)
CPT/HCPCS: 82274

== ENCOUNTER → 2021-10-14 14:56 | Outpatient (CLI) | payer MEDICARE, SELFPAY ==
[2017-08-08 17:56] VITALS: BMI 28.2
== END ==
PROVIDERS: PCP Physician Assistant Medical; Visit Provider Physician Assistant Medical
DX: R30.0 Dysuria (principal)
CPT/HCPCS: 87086

== ENCOUNTER → 2021-10-28 09:52 | Outpatient (CLI) | payer MEDICARE, SELFPAY ==
[2017-08-08 17:56] VITALS: BMI 28.2
[2021-10-28 19:43] LABS: Add Manual Diff / Slide Review NO; Basophils Absolute Auto 0 /uL (0-100); Basophils Percent Auto 0.7 % (0-2); Eosinophils Absolute Auto 200 /uL (0-450); Eosinophils Percent Auto 3.6 % (2-4); Hemoglobin 13.9 g/dL (13.5-17.5); Lymphocytes Absolute Auto 1300 /uL (1100-4500); Lymphocytes Percent Auto 25.3 % (25-40); Mean Corpuscular HGB Conc 33.1 % (30-36); Mean Corpuscular Hemoglobin 30.4 PG (26-34); Mean Corpuscular Volume 91.8 fL (80-100); Monocytes Absolute Auto 500 /uL (0-900); Monocytes Percent Auto 10.7 % (3-14); Neutrophils Absolute Auto 3000 /uL (1500-7000); Neutrophils Percent Auto 59.7 % (50-75); Platelet Count 151 X10^3/uL (150-400); Red Blood Cell Count 4.58 X10^6/uL (4.5-5.9)
[2021-10-28 19:53] LABS: Alanine Aminotransferase 12 IU/L (<50); Albumin 3.9 g/dL (3.5-5.0); Albumin Globulin Ratio 1.3 (1.0-2.8); Alkaline Phosphatase 90 U/L (38-126); Aspartate Aminotransferase 22 IU/L (17-59); BUN Creatinine Ratio 16.5 (6-22); Bilirubin Total 0.6 mg/dL (0.2-1.3); Blood Urea Nitrogen 14 mg/dL (9-20); Carbon Dioxide 31 mmol/L (22-32); Chloride 104 mmol/L (98-107); Cholesterol 239 mg/dL (140-199); Estimated Glomerular Filt Rate > 60 mL/min (>60); Globulin 2.9 g/dL (1.7-4.1); Glucose 114 mg/dL (80-110); HDL Cholesterol 48 mg/dL (40-60); HEMOLYSIS < 15 (0-50); Hemoglobin A1C% w Est Avg Glu 6.5 % (4.0-6.0); LDL Cholesterol Calculated 179 mg/dL (<100); Potassium 4.5 mmol/L (3.4-5.1); Sodium 141 mmol/L (137-145); Total Protein 6.8 g/dL (6.3-8.2); Triglycerides 62 mg/dL (35-150)
[2021-10-28 20:21] LABS: Prostate Specific Antigen 2.24 ng/mL (0.10-4.00)
[2021-10-28 20:29] LABS: TSH w/ Reflex to FT4 1.63 uIU/mL (0.47-4.68)
== END ==
PROVIDERS: PCP Physician Assistant Medical; Visit Provider Physician Assistant Medical
DX: Z12.5 Encounter for screening for malignant neoplasm of prostate (principal); Z13.0 Encounter for screening for diseases of the blood and blood-forming organs and certain disorders involving the immune mechanism; Z13.220 Encounter for screening for lipoid disorders; Z13.228 Encounter for screening for other metabolic disorders; Z13.29 Encounter for screening for other suspected endocrine disorder; K92.2 Gastrointestinal hemorrhage, unspecified; R30.0 Dysuria; R33.9 Retention of urine, unspecified; R73.9 Hyperglycemia, unspecified
CPT/HCPCS: 80053; 80061; 83036; 84153; 84443; 85025

== ENCOUNTER → 2022-01-27 09:17 | Outpatient (CLI) | payer MEDICARE, SELFPAY ==
[2021-12-18 09:39] VITALS: BMI 28.2
[2022-01-27 19:36] LABS: Alanine Aminotransferase 17 IU/L (<50); Albumin 3.9 g/dL (3.5-5.0); Albumin Globulin Ratio 1.2 (1.0-2.8); Alkaline Phosphatase 93 U/L (38-126); Aspartate Aminotransferase 23 IU/L (17-59); BUN Creatinine Ratio 14.5 (6-22); Bilirubin Total 0.7 mg/dL (0.2-1.3); Blood Urea Nitrogen 12 mg/dL (9-20); Calcium 9.4 mg/dL (8.4-10.2); Carbon Dioxide 30 mmol/L (22-32); Chloride 104 mmol/L (98-107); Cholesterol 234 mg/dL (140-199); Estimated Glomerular Filt Rate > 60 mL/min (>60); Globulin 3.2 g/dL (1.7-4.1); Glucose 124 mg/dL (80-110); HDL Cholesterol 52 mg/dL (40-60); HEMOLYSIS < 15 (0-50); LDL Cholesterol Calculated 167 mg/dL (<100); Potassium 4.3 mmol/L (3.4-5.1); Sodium 140 mmol/L (137-145); Total Protein 7.1 g/dL (6.3-8.2); Triglycerides 74 mg/dL (35-150)
[2022-01-27 19:48] LABS: Hemoglobin A1C% w Est Avg Glu 6.5 % (4.0-6.0)
[2022-01-27 19:59] LABS: Appearance Urine UA CLEAR; Bilirubin Urine UA NEGATIVE (NEGATIVE); Color Urine UA YELLOW; Glucose Urine UA TRACE g/dL (Negative); Ketones Urine UA NEGATIVE (NEGATIVE); Leukocyte Esterase Urine UA TRACE (NEGATIVE); Nitrite Urine UA NEGATIVE (Negative); Occult Blood Urine UA NEGATIVE (Negative); Protein Urine UA TRACE (Negative); Urobilinogen Urine UA 0.2 E.U./dL (0.2); pH Urine UA 5.5 (4.5-8.0)
[2022-01-27 20:10] LABS: Bacteria Urine Occasional (0-1); Calcium Oxalate Crystals Urine Many; Culture Indicated Urine Specimen Cultured; RBC Urine 0-1/HPF (0-5/HPF); WBC Urine 1-5/HPF (0-5/HPF)
[2022-01-29 15:50] LABS: Fecal Immunochemical Test Positive (Negative)
== END ==
PROVIDERS: PCP Physician Assistant Medical; Visit Provider Physician Assistant Medical
DX: Z13.228 Encounter for screening for other metabolic disorders (principal); E78.00 Pure hypercholesterolemia, unspecified; R73.9 Hyperglycemia, unspecified; K92.2 Gastrointestinal hemorrhage, unspecified; R30.0 Dysuria; R33.9 Retention of urine, unspecified; Z12.5 Encounter for screening for malignant neoplasm of prostate; Z13.0 Encounter for screening for diseases of the blood and blood-forming organs and certain disorders involving the immune mechanism; Z13.220 Encounter for screening for lipoid disorders; Z13.29 Encounter for screening for other suspected endocrine disorder
CPT/HCPCS: 80053; 80061; 81001; 82274; 83036; 87086

== ENCOUNTER → 2022-04-13 09:28 | Outpatient (CLI) | payer MEDICARE, SELFPAY ==
[2021-12-18 09:39] VITALS: BMI 28.2
[2022-04-13 19:19] LABS: Appearance Urine UA CLEAR; Bilirubin Urine UA NEGATIVE (NEGATIVE); Color Urine UA YELLOW; Glucose Urine UA NEGATIVE (Negative); Ketones Urine UA NEGATIVE (NEGATIVE); Leukocyte Esterase Urine UA NEGATIVE (NEGATIVE); Nitrite Urine UA NEGATIVE (Negative); Occult Blood Urine UA NEGATIVE (Negative); Protein Urine UA NEGATIVE (Negative); Specific Gravity Urine UA 1.015 (1.000-1.035); Urobilinogen Urine UA 0.2 E.U./dL (0.2); pH Urine UA 6.5 (4.5-8.0)
[2022-04-13 19:24] LABS: Add Manual Diff / Slide Review NO; Basophils Absolute Auto 0 /uL (0-100); Basophils Percent Auto 0.5 % (0-2); Eosinophils Absolute Auto 200 /uL (0-450); Hematocrit 42.9 % (41-53); Hemoglobin 14.4 g/dL (13.5-17.5); Lymphocytes Absolute Auto 1300 /uL (1100-4500); Mean Corpuscular HGB Conc 33.7 % (30-36); Mean Corpuscular Hemoglobin 30.9 PG (26-34); Mean Corpuscular Volume 91.7 fL (80-100); Monocytes Absolute Auto 600 /uL (0-900); Neutrophils Absolute Auto 3700 /uL (1500-7000); Neutrophils Percent Auto 62.5 % (50-75); Platelet Count 162 X10^3/uL (150-400); Red Blood Cell Count 4.68 X10^6/uL (4.5-5.9); Red Cell Distribution Width 13.3 % (11.6-14.8); White Blood Cell Count 5.8 X10^3/uL (4.5-11.0)
[2022-04-13 19:26] LABS: Alanine Aminotransferase 23 IU/L (<50); Albumin 3.9 g/dL (3.5-5.0); Albumin Globulin Ratio 1.2 (1.0-2.8); Alkaline Phosphatase 107 U/L (38-126); Aspartate Aminotransferase 27 IU/L (17-59); BUN Creatinine Ratio 17.2 (6-22); Bilirubin Total 0.9 mg/dL (0.2-1.3); Blood Urea Nitrogen 15 mg/dL (9-20); Calcium 9.3 mg/dL (8.4-10.2); Carbon Dioxide 31 mmol/L (22-32); Chloride 99 mmol/L (98-107); Cholesterol 204 mg/dL (140-199); Estimated Glomerular Filt Rate > 60 mL/min (>60); Globulin 3.2 g/dL (1.7-4.1); Glucose 127 mg/dL (80-110); HDL Cholesterol 51 mg/dL (40-60); HEMOLYSIS < 15 (0-50); LDL Cholesterol Calculated 137 mg/dL (<100); Potassium 4.2 mmol/L (3.4-5.1); Sodium 138 mmol/L (137-145); Total Protein 7.1 g/dL (6.3-8.2); Triglycerides 78 mg/dL (35-150)
[2022-04-13 19:29] LABS: Bacteria Urine None Seen; Culture Indicated Urine Cult Not Indicated; RBC Urine None Seen (0-5/HPF); Squamous Epithelial Cell Urine None Seen (0-5/HPF); WBC Urine 0-1/HPF (0-5/HPF)
[2022-04-13 19:59] LABS: TSH w/ Reflex to FT4 2.46 uIU/mL (0.47-4.68)
== END ==
PROVIDERS: PCP Physician Assistant Medical; Visit Provider Physician Assistant Medical
DX: E78.00 Pure hypercholesterolemia, unspecified (principal); J44.9 Chronic obstructive pulmonary disease, unspecified; K92.2 Gastrointestinal hemorrhage, unspecified; R30.0 Dysuria; R33.9 Retention of urine, unspecified; R73.9 Hyperglycemia, unspecified; Z13.228 Encounter for screening for other metabolic disorders; Z13.29 Encounter for screening for other suspected endocrine disorder
CPT/HCPCS: 80053; 80061; 81001; 84443; 85025

== ENCOUNTER → 2022-07-05 13:31 | Outpatient (CLI) | payer MEDICARE, SELFPAY ==
[2021-12-18 09:39] VITALS: BMI 28.2
[2022-07-05 19:34] LABS: Add Manual Diff / Slide Review NO; Basophils Absolute Auto 0 /uL (0-100); Basophils Percent Auto 0.4 % (0-2); Eosinophils Absolute Auto 100 /uL (0-450); Eosinophils Percent Auto 1.4 % (2-4); Hematocrit 41.1 % (41-53); Hemoglobin 13.9 g/dL (13.5-17.5); Lymphocytes Absolute Auto 1200 /uL (1100-4500); Lymphocytes Percent Auto 18.6 % (25-40); Mean Corpuscular HGB Conc 33.8 % (30-36); Mean Corpuscular Volume 91.6 fL (80-100); Monocytes Absolute Auto 600 /uL (0-900); Monocytes Percent Auto 10.3 % (3-14); Neutrophils Absolute Auto 4300 /uL (1500-7000); Neutrophils Percent Auto 69.3 % (50-75); Platelet Count 196 X10^3/uL (150-400); Red Blood Cell Count 4.49 X10^6/uL (4.5-5.9); White Blood Cell Count 6.3 X10^3/uL (4.5-11.0)
[2022-07-05 19:47] LABS: BUN Creatinine Ratio 25.3 (6-22); Blood Urea Nitrogen 22 mg/dL (9-20); Calcium 9.4 mg/dL (8.4-10.2); Carbon Dioxide 32 mmol/L (22-32); Chloride 97 mmol/L (98-107); Estimated Glomerular Filt Rate > 60 mL/min (>60); Glucose 139 mg/dL (80-110); HEMOLYSIS < 15 (0-50); Potassium 4.1 mmol/L (3.4-5.1); Sodium 136 mmol/L (137-145)
== END ==
PROVIDERS: PCP Physician Assistant Medical; Visit Provider Family Medicine
DX: G50.0 Trigeminal neuralgia (principal); Z51.81 Encounter for therapeutic drug level monitoring
CPT/HCPCS: 80048; 85025

== ENCOUNTER → 2022-10-22 10:51 | Outpatient (CLI) | payer MEDICARE, SELFPAY ==
[2021-12-18 09:39] VITALS: BMI 28.2
== END ==
PROVIDERS: PCP Physician Assistant Medical; Visit Provider Physician Assistant Medical
DX: T14.8XXA Other injury of unspecified body region, initial encounter (principal); W50.3XXA Accidental bite by another person, initial encounter
CPT/HCPCS: 87070; 87075; 87205

== ENCOUNTER → 2022-10-25 11:24 | Outpatient (CLI) | payer MEDICARE, SELFPAY ==
[2021-12-18 09:39] VITALS: BMI 28.2
== END ==
PROVIDERS: PCP Physician Assistant Medical; Visit Provider Physician Assistant
DX: L08.89 Other specified local infections of the skin and subcutaneous tissue (principal)
CPT/HCPCS: 87070; 87075; 87205

== ENCOUNTER → 2023-05-24 09:05 | Outpatient (CLI) | payer MEDICARE, SELFPAY ==
[2021-12-18 09:39] VITALS: BMI 28.2
[2023-05-24 19:11] LABS: Alanine Aminotransferase 13 IU/L (<50); Albumin 3.8 g/dL (3.5-5.0); Albumin Globulin Ratio 1.2 (1.0-2.8); Alkaline Phosphatase 84 U/L (38-126); Aspartate Aminotransferase 23 IU/L (17-59); BUN Creatinine Ratio 17.4 (6-22); Bilirubin Total 0.8 mg/dL (0.2-1.3); Blood Urea Nitrogen 15 mg/dL (9-20); Calcium 9.4 mg/dL (8.4-10.2); Carbon Dioxide 28 mmol/L (22-32); Chloride 105 mmol/L (98-107); Cholesterol 210 mg/dL (140-199); Estimated Glomerular Filt Rate > 60 mL/min (>60); Globulin 3.2 g/dL (1.7-4.1); Glucose 132 mg/dL (80-110); HDL Cholesterol 59 mg/dL (40-60); HEMOLYSIS < 15 (0-50); LDL Cholesterol Calculated 135 mg/dL (<100); Potassium 4.8 mmol/L (3.4-5.1); Sodium 139 mmol/L (137-145); Triglycerides 78 mg/dL (35-150)
[2023-05-24 19:20] LABS: Add Manual Diff / Slide Review NO; Basophils Absolute Auto 100 /uL (0-100); Basophils Percent Auto 1.7 % (0-2); Eosinophils Absolute Auto 100 /uL (0-450); Eosinophils Percent Auto 2.6 % (2-4); Hemoglobin 13.9 g/dL (13.5-17.5); Lymphocytes Absolute Auto 1300 /uL (1100-4500); Lymphocytes Percent Auto 22.7 % (25-40); Monocytes Absolute Auto 600 /uL (0-900); Monocytes Percent Auto 9.9 % (3-14); Neutrophils Absolute Auto 3500 /uL (1500-7000); Neutrophils Percent Auto 63.1 % (50-75); Platelet Count 196 X10^3/uL (150-400); Red Blood Cell Count 4.47 X10^6/uL (4.5-5.9); White Blood Cell Count 5.6 X10^3/uL (4.5-11.0)
[2023-05-24 19:22] LABS: Creatinine Urine Random 100.2 mg/dL
[2023-05-24 19:30] LABS: Microalbumi Creatinin Ratio Ur 37.9 ug/mg CR (<30); Microalbumin Urine Random 3.8 mg/dL (0-1.6)
[2023-05-24 19:38] LABS: Prostate Specific Antigen Scrn 1.48 ng/mL (0.1-4.0)
[2023-05-24 19:51] LABS: Hemoglobin A1C% w Est Avg Glu 6.9 % (4.0-6.0)
== END ==
PROVIDERS: PCP Family Medicine; Visit Provider Family Medicine
DX: Z12.5 Encounter for screening for malignant neoplasm of prostate (principal); E11.9 Type 2 diabetes mellitus without complications; R19.5 Other fecal abnormalities; E78.2 Mixed hyperlipidemia; I10 Essential (primary) hypertension
CPT/HCPCS: 80053; 80061; 82043; 82570; 83036; 85025; G0103

== ENCOUNTER → 2023-07-19 12:25 | Outpatient (CLI) | payer MEDICARE, SELFPAY ==
[2021-12-18 09:39] VITALS: BMI 28.2
== END ==
PROVIDERS: PCP Family Medicine; Visit Provider Physician Assistant
DX: J02.9 Acute pharyngitis, unspecified (principal)
CPT/HCPCS: 87070

== ENCOUNTER → 2024-01-19 10:36 | Outpatient (CLI) | payer MEDICARE, SELFPAY ==
[2021-12-18 09:39] VITALS: BMI 28.2
[2024-01-19 19:09] LABS: Cholesterol 220 mg/dL (140-199); Glucose 158 mg/dL (80-110); HDL Cholesterol 49 mg/dL (40-60); LDL Cholesterol Calculated 155 mg/dL (<100); Triglycerides 78 mg/dL (35-150)
[2024-01-19 19:38] LABS: Prostate Specific Antigen Scrn 2.08 ng/mL (0.1-4.0)
[2024-01-19 19:58] LABS: Hep C Virus Ab w/Reflex Quant NEGATIVE s/c (NEGATIVE)
== END ==
PROVIDERS: PCP Family Medicine; Visit Provider Family Medicine
DX: Z12.11 Encounter for screening for malignant neoplasm of colon (principal); Z13.1 Encounter for screening for diabetes mellitus; Z11.59 Encounter for screening for other viral diseases; Z13.220 Encounter for screening for lipoid disorders; Z12.5 Encounter for screening for malignant neoplasm of prostate; Z13.6 Encounter for screening for cardiovascular disorders; Z71.85 Encounter for immunization safety counseling
CPT/HCPCS: 80061; 82947; 86803; G0103

== ENCOUNTER → 2024-02-15 08:59 | Outpatient (CLI) | payer MEDICARE, SELFPAY ==
[2021-12-18 09:39] VITALS: BMI 28.2
[2024-02-15 20:08] LABS: Add Manual Diff / Slide Review NO; Basophils Absolute Auto 0 /uL (0-100); Basophils Percent Auto 0.5 % (0-2); Eosinophils Absolute Auto 100 /uL (0-450); Eosinophils Percent Auto 2.4 % (2-4); Hematocrit 44.1 % (41-53); Hemoglobin 14.6 g/dL (13.5-17.5); Lymphocytes Absolute Auto 1200 /uL (1100-4500); Lymphocytes Percent Auto 24.7 % (25-40); Mean Corpuscular Volume 93.8 fL (80-100); Monocytes Absolute Auto 500 /uL (0-900); Monocytes Percent Auto 11.3 % (3-14); Neutrophils Absolute Auto 2900 /uL (1500-7000); Neutrophils Percent Auto 61.1 % (50-75); Platelet Count 207 X10^3/uL (150-400); White Blood Cell Count 4.7 X10^3/uL (4.5-11.0)
[2024-02-15 20:22] LABS: BUN Creatinine Ratio 17.4 (6-22); Blood Urea Nitrogen 16 mg/dL (9-20); Calcium 9.4 mg/dL (8.4-10.2); Carbon Dioxide 28 mmol/L (22-32); Chloride 103 mmol/L (98-107); Cholesterol 262 mg/dL (140-199); Estimated Glomerular Filt Rate > 60 mL/min (>60); Glucose 145 mg/dL (80-110); HDL Cholesterol 51 mg/dL (40-60); HEMOLYSIS 20 (0-50); LDL Cholesterol Calculated 196 mg/dL (<100); Potassium 4.4 mmol/L (3.4-5.1); Sodium 136 mmol/L (137-145); Triglycerides 74 mg/dL (35-150)
[2024-02-15 20:24] LABS: Hemoglobin A1C% w Est Avg Glu 6.9 % (4.0-6.0)
[2024-02-15 20:48] LABS: Creatinine Urine Random 174.12 mg/dL
[2024-02-15 20:52] LABS: Microalbumin Urine Random 11.2 mg/dL (0-1.6)
== END ==
PROVIDERS: PCP Family Medicine; Visit Provider Family Medicine
DX: E78.2 Mixed hyperlipidemia (principal); E11.9 Type 2 diabetes mellitus without complications
CPT/HCPCS: 80048; 80061; 82043; 82570; 83036; 85025

== ENCOUNTER → 2024-04-04 11:52 | Outpatient (CLI) | payer MEDICARE, SELFPAY ==
[2021-12-18 09:39] VITALS: BMI 28.2
== END ==
PROVIDERS: PCP Family Medicine; Visit Provider Urology
DX: N40.1 Benign prostatic hyperplasia with lower urinary tract symptoms (principal); N13.8 Other obstructive and reflux uropathy; N32.81 Overactive bladder; R35.1 Nocturia; R39.12 Poor urinary stream; R39.14 Feeling of incomplete bladder emptying; R35.0 Frequency of micturition
CPT/HCPCS: 51798; 81002; 87086; 99214

== ENCOUNTER → 2024-10-17 09:13 | Outpatient (CLI) | payer MEDICARE, SELFPAY ==
[2021-12-18 09:39] VITALS: BMI 28.2
[2024-10-17 20:10] LABS: Cholesterol 268 mg/dL (140-199); HDL Cholesterol 50 mg/dL (40-60); Triglycerides 139 mg/dL (35-150)
== END ==
PROVIDERS: PCP Family Medicine; Visit Provider Family Medicine
DX: E78.2 Mixed hyperlipidemia (principal)
CPT/HCPCS: 80061

== ENCOUNTER → 2024-11-13 15:33 | Outpatient (CLI) | payer MEDICARE, SELFPAY ==
[2021-12-18 09:39] VITALS: BMI 28.2
--- NOTE | 2024-11-13 15:35 | DI.MRI.S_ITS ---
PROCEDURE: MR LUMBAR SPINE WO CON INDICATIONS: spinal stenosis neurogenic claudication TECHNIQUE: Noncontrast sagittal T1 spin echo and T2 fast echo, sagittal STIR, and T2 fast spin echo through the lumbar spine. In cases with scoliosis, additional coronal T2 fast spin echo may be performed. COMPARISON: None. FINDINGS: Image quality: Excellent. Alignment and Curvature: There is normal bony alignment. Bone Marrow: Marrow is of normal overall signal. No acute vertebral body compression fractures. Spinal Cord: Conus medullaris terminates at the L1 level. Visualized cord demonstrates normal signal and size. Paraspinous Soft Tissues: No paravertebral masses. T12-L1: Normal appearance. L1-L2: Normal appearance. L2-L3: Disc bulge and hypertrophic facet joints. Mild central stenosis. No foraminal stenosis. L3-L4: Disc bulge and arthropathy. Bthg-[id number]-[id number] central stenosis. No foraminal stenosis L4-L5: Disc bulge and arthropathy. Ligamentum flavum laxity. Moderate to severe central stenosis. Moderate bilateral foraminal stenosis. L5-S1: Disc bulge and arthropathy. No central stenosis. No foraminal stenosis. IMPRESSION: Multilevel degenerative disc disease and arthropathy results in varying degrees of central and foraminal stenosis including moderate to severe central stenosis at L4-5 Approved by: Vikash Hill M.D. on 11/13/2024 at 16:33
== END ==
LOC: MRI 15:34
PROVIDERS: PCP Family Medicine; Referring Provider Family Medicine; Visit Provider Family Medicine
DX: M48.061 Spinal stenosis, lumbar region without neurogenic claudication (principal); M51.369 Other intervertebral disc degeneration, lumbar region without mention of lumbar back pain or lower extremity pain; M47.816 Spondylosis without myelopathy or radiculopathy, lumbar region; M51.379 Other intervertebral disc degeneration, lumbosacral region without mention of lumbar back pain or lower extremity pain; M47.817 Spondylosis without myelopathy or radiculopathy, lumbosacral region
CPT/HCPCS: 72148

== ENCOUNTER → 2025-02-07 08:08 | Outpatient (CLI) | payer MEDICARE, SELFPAY ==
[2021-12-18 09:39] VITALS: BMI 28.2
[2025-02-07 18:55] LABS: Add Manual Diff / Slide Review NO; Hematocrit 40.0 % (41-53); Hemoglobin 13.4 g/dL (13.5-17.5); Lymphocytes Absolute Auto 1300 /uL (1100-4500); Mean Corpuscular HGB Conc 33.6 % (30-36); Mean Corpuscular Hemoglobin 31.1 PG (26-34); Mean Corpuscular Volume 92.6 fL (80-100); Platelet Count 178 X10^3/uL (150-400)
[2025-02-07 19:09] LABS: Blood Urea Nitrogen 13 mg/dL (9-20); Calcium 9.2 mg/dL (8.4-10.2); Carbon Dioxide 27 mmol/L (22-32); Chloride 105 mmol/L (98-107); Cholesterol 235 mg/dL (140-199); Estimated Glomerular Filt Rate > 60 mL/min (>60); Glucose 140 mg/dL (70-99); HDL Cholesterol 56 mg/dL (40-60); HEMOLYSIS < 15 (0-50); Potassium 4.3 mmol/L (3.4-5.1); Sodium 139 mmol/L (137-145); Triglycerides 102 mg/dL (35-150)
[2025-02-07 19:23] LABS: Hemoglobin A1C% w Est Avg Glu 7.0 % (4.0-6.0)
[2025-02-07 19:24] LABS: Microalbumi Creatinin Ratio Ur 76.0 ug/mg CR (<30)
== END ==
PROVIDERS: PCP Family Medicine; Visit Provider Family Medicine
DX: Z12.5 Encounter for screening for malignant neoplasm of prostate (principal); N40.1 Benign prostatic hyperplasia with lower urinary tract symptoms; N13.8 Other obstructive and reflux uropathy; E11.9 Type 2 diabetes mellitus without complications; E78.2 Mixed hyperlipidemia; I10 Essential (primary) hypertension
CPT/HCPCS: 80048; 80061; 82043; 82570; 83036; 85025; G0103